=== PATIENT | male | born 1955 | race Caucasian/White ===

== ENCOUNTER 2017-12-09 11:53 | Inpatient (IN) ==
--- NOTE | 2017-12-09 12:10 | Emergency Department Note ---
Disposition Clinical Impression: Non-ST elevation [place] (NSTEMI) Disposition: Admitted As Inpatient Condition: Good Referrals: Alison Scott [Primary Care Provider] - Forms: ED Satisfaction Letter Time of Disposition: 14:14 General Adult HPI - General Chief complaint: ED Shortness of Breath/Dyspnea Stated complaint: JAMEL,CP x1wk Time Seen by Provider: 12/09/17 11:59 Source: patient Mode of arrival: ambulatory Limitations: no limitations - History of Present Illness HPI Narrative: This is a 62-year-old male who comes to emergency department stating that for the last week he has had dyspnea on exertion like he had before his angioplasty on August [id number]. He states that the shortness of breath is accompanied by pain that radiates into the back of his neck. He reports some chest discomfort but no actual chest pain. He has never smoked and has no diagnosis of COPD. - Related Data Home Medications Medication Instructions Recorded Confirmed Aspirin [Lo-Dose Aspirin EC] 81 mg PO DAILY 08/01/17 08/01/17 Duloxetine HCl [Cymbalta] 60 mg PO DAILY 08/01/17 08/01/17 Gabapentin [Neurontin] 600 mg PO BID 08/01/17 08/01/17 Lisinopril [Zestril] 20 mg PO DAILY 08/01/17 08/01/17 [place]-3/Dha/Epa/Fish Oil [Fish Oil 1 tab PO BID 08/01/17 08/01/17 1,000 mg Softgel] Sitagliptin Phos/Metformin HCl 1 each PO DAILY 08/01/17 08/01/17 [Janumet Xr 100-1,000 mg Tablet] Tamsulosin [Flomax] 0.4 mg PO DAILY 08/01/17 08/01/17 hydrOXYzine HCl [Hydroxyzine HCl] 25 mg PO BID 08/01/17 08/01/17 Previous Rx's Medication Instructions Recorded Atorvastatin [Lipitor] 80 mg PO HS #30 tablet 08/02/17 Metoprolol [Lopressor] 12.5 mg PO BID #60 tablet 08/02/17 Nitroglycerin 0.4 mg SL Q5MIN PRN #30 tab.subl 08/02/17 Ticagrelor [Brilinta] 90 mg PO BID #60 tablet 08/02/17 Allergies Allergy/AdvReac Type Severity Reaction Status Date / Time steroids Allergy Rash Uncoded 08/01/17 08:29 All systems ED: reviewed and negative except as stated. Cardiovascular: Reports: chest pain Respiratory: Reports: dyspnea Musculoskeletal: Reports: other (Neck pain) Past Medical History - Past Medical History Medical history: Reports: diabetes, hypertension Psychiatric history: Reports: anxiety - Social History Smoking Status: Never smoker Smokeless Tobacco Status: Yes Alcohol use: Reports: none Drug use: Reports: none Physical Exam - General Limitations: no limitations General appearance: alert, in no apparent distress - Head Head exam: atraumatic, normocephalic, normal inspection - Eye Eye exam: Present: normal appearance, PERRL, EOMI - Chest Chest inspection: Present: normal inspection, symmetric chest wall rise - Respiratory Respiratory exam: Present: normal lung sounds bilaterally. Absent: respiratory distress, wheezes, accessory muscle use, prolonged expiratory phase - Cardiovascular Cardiovascular exam: Present: regular rate, normal rhythm, normal heart sounds - Abdominal Exam Abdominal exam: Present: soft, Non-Tender. Absent: tenderness, distention, guarding, rebound, rigidity - Extremities Exam Extremities exam: Present: normal inspection, full ROM. Absent: tenderness, pedal edema - Back Exam Back exam: Absent: CVA tenderness (R), CVA tenderness (L) - Neurological Exam Neurological exam: Present: alert, oriented X3 - Psychiatric Psychiatric exam: Present: normal affect, normal mood - Skin Skin exam: Present: warm, dry, intact, normal color Course Course Narrative: This is a 62-year-old male with shortness of breath with exertion concerning for acute coronary syndrome Vital Signs Temperature 98.8 F 12/09/17 11:56 Pulse Rate 74 12/09/17 11:56 Respiratory Rate 18 12/09/17 11:56 Blood Pressure 147/76 12/09/17 11:56 O2 Sat by Pulse Oximetry 97 12/09/17 11:56 Temperature 98.8 F 12/09/17 12:05 Pulse Rate 74 12/09/17 12:05 Respiratory Rate 18 12/09/17 12:05 Blood Pressure 147/76 12/09/17 12:05 O2 Sat by Pulse Oximetry 97 12/09/17 12:05 Oxygen Delivery Oxygen Delivery Room Air Medical Decision Making - Lab Data Lab results narrative: CBC was unremarkable BMP was unremarkable Troponin was elevated at 0.21 Result diagrams: 12/09/17 13:18 12/09/17 12:17 Lab Results 12/09/17 12/09/17 12/09/17 Range/Units 12:17 12:17 13:18 WBC 9.4 9.6 (4.3-11.1) K/mcL RBC 4.72 4.79 (4.19-5.50) M/mcL Hgb 14.6 14.7 (12.9-16.9) g/dL Hct 43.2 43.7 (37.5-50.1) % MCV 91.5 91.2 (83.0-100.0) fL MCH 30.9 30.7 (28.0-33.3) pg MCHC 33.8 33.6 (31.6-35.5) g/dL RDW 13.2 13.3 (11.5-14.5) % Plt Count 261 269 (140-400) K/mcL MPV 9.8 9.8 (9.4-12.4) fL Immature Gran % 0.3 (0-4) % Seg Neutrophils % 66.4 % Lymphocytes % 19.5 % Monocytes % 10.4 % Eosinophils % 2.4 % Basophils % 1.0 % Neutrophils # 6.3 (1.6-8.9) K/mcL Lymphocytes # 1.8 (0.6-4.6) K/mcL Monocytes # 1.0 (0.0-1.3) K/mcL Eosinophils # 0.2 (0.0-0.6) K/mcL Basophils # 0.1 (0.0-0.2) K/mcL PT (9.4-12.1) Seconds INR Heparin Anti-Xa, Unfract (0.30-0.70) IU/mL Sodium 138 (136-145) mEq/L Potassium 4.0 (3.5-5.1) mEq/L Chloride 104 (98-107) mEq/L Carbon Dioxide 28 (23-29) mEq/L BUN 20 (8-23) mg/dL Creatinine 0.81 (0.70-1.30) mg/dL Est GFR ( Amer) > 60 (> 60) Est GFR (Non-Af Amer) > 60 (> 60) BUN/Creatinine Ratio 25 (6-26) Glucose 140 H (70-105) mg/dL Calculated Osmolality 291 (280-300) Calcium 9.5 (8.6-10.3) mg/dL Troponin I 0.21 H* (< 0.04) ng/mL 12/09/17 Range/Units 13:18 WBC (4.3-11.1) K/mcL RBC (4.19-5.50) M/mcL Hgb (12.9-16.9) g/dL Hct (37.5-50.1) % MCV (83.0-100.0) fL MCH (28.0-33.3) pg MCHC (31.6-35.5) g/dL RDW (11.5-14.5) % Plt Count (140-400) K/mcL MPV (9.4-12.4) fL Immature Gran % (0-4) % Seg Neutrophils % % Lymphocytes % % Monocytes % % Eosinophils % % Basophils % % Neutrophils # (1.6-8.9) K/mcL Lymphocytes # (0.6-4.6) K/mcL Monocytes # (0.0-1.3) K/mcL Eosinophils # (0.0-0.6) K/mcL Basophils # (0.0-0.2) K/mcL PT 11.3 (9.4-12.1) Seconds INR 1.0 Heparin Anti-Xa, Unfract 0.05 L (0.30-0.70) IU/mL Sodium (136-145) mEq/L Potassium (3.5-5.1) mEq/L Chloride (98-107) mEq/L Carbon Dioxide (23-29) mEq/L BUN (8-23) mg/dL Creatinine (0.70-1.30) mg/dL Est GFR ( Amer) (> 60) Est GFR (Non-Af Amer) (> 60) BUN/Creatinine Ratio (6-26) Glucose (70-105) mg/dL Calculated Osmolality (280-300) Calcium (8.6-10.3) mg/dL Troponin I (< 0.04) ng/mL - EKG Data EKG #1 EKG attestation: Yes I reviewed and interpreted this EKG. EKG results narrative: ECG shows a sinus rhythm, 75 bpm, normal intervals, normal axis,, ST depressions in leads 2 and V4 through V6, T-wave inversions in 1, aVL, and V4 through V6 EKG #2 EKG attestation: Yes I reviewed and interpreted this EKG. EKG results narrative: In DCG with posterior leads showed a sinus rhythm, 69 bpm, no ST elevations in V7, V8, or V9, no ST elevations, Critical Care Time Critical Care Time: Yes Total Critical Care Time: 20 Attestation: 20 minutes of critical care time was invested independent of any separately billable procedures
[2017-12-09 12:30] LABS: Basophils # 0.1 K/mcL (0.0-0.2); Eosinophils # 0.2 K/mcL (0.0-0.6); Eosinophils % 2.4 %; Hematocrit 43.2 % (37.5-50.1); Hemoglobin 14.6 g/dL (12.9-16.9); Immature Granulocytes % 0.3 % (0-4); Lymphocytes # 1.8 K/mcL (0.6-4.6); Lymphocytes % 19.5 %; Mean Corpuscular HGB Conc 33.8 g/dL (31.6-35.5); Mean Corpuscular Hemoglobin 30.9 pg (28.0-33.3); Mean Corpuscular Volume 91.5 fL (83.0-100.0); Mean Platelet Volume 9.8 fL (9.4-12.4); Monocytes % 10.4 %; Neutrophils # 6.3 K/mcL (1.6-8.9); Platelet Count 261 K/mcL (140-400); Red Blood Count 4.72 M/mcL (4.19-5.50); Red Cell Distribution Width 13.2 % (11.5-14.5); Segmented Neutrophils % 66.4 %
[2017-12-09 12:52] LABS: BUN/Creatinine Ratio 25 (6-26); Blood Urea Nitrogen 20 mg/dL (8-23); Calcium 9.5 mg/dL (8.6-10.3); Carbon Dioxide 28 mEq/L (23-29); Chloride 104 mEq/L (98-107); Glucose 140 mg/dL (70-105); Osmolality,Calculated 291 (280-300); Sodium 138 mEq/L (136-145); eGFR For Non-African Americans > 60 (> 60)
[2017-12-09 13:01] LABS: Troponin I 0.21 ng/mL (< 0.04)
[2017-12-09] MEDS ORDERED: *HR* Heparin 5,000 UNIT/ML VIAL IVP ONE (13:10)
[2017-12-09] MEDS ORDERED: *HR* Heparin 5,000 UNIT/ML VIAL IVP PRN ×2 (13:10)
[2017-12-09] MEDS ORDERED: Heparin 25,000 UNIT/500 ML D5W 25,000 UNIT/500 ML BAG IVC SCH (13:15)
--- NOTE | 2017-12-09 13:30 | Cardiology Consult Note ---
Date of Encounter: 12/09/17 Time of Encounter: 13:28 Assessment and Plan (1) NSTEMI (non-ST elevated myocardial infarction) Current Visit: Yes Status: Acute HECTOR 3-4, known RCA stent 07/2017, severe OM2 and R-PDA. taking his meds at home. Had ASA 324 in ED P: heparin drip [facility], NPO needs floor bed c/w other home meds TTE (2) Aortic stenosis, moderate Current Visit: Yes Status: Acute moderate, repeat TTE given dyspnea worsening (3) CAD (coronary artery disease) Current Visit: No Status: Acute see NSTEMI section Qualifiers: Coronary Disease-Associated Artery/Lesion type: [place] artery [place] vs. transplanted heart: [place] heart Associated angina: with unstable angina Qualified Code(s): I25.110 - Atherosclerotic heart disease of [place] coronary artery with unstable angina pectoris Discussion w patient/family: The assessment and plan as outlined above was discussed with the patient and/or family members who expressed understanding and agreement. All questions were answered. Thank you for involving us in the care of your patient. Please call with any questions. History of Present Illness Consult date: 12/09/17 Requesting physician: Kameron Gilliland Consult reason: NSTEMI Chief complaint: chest discomfort, dyspnea History of present illness: Mr. Pitt is a 62 year old male CAD RCA DESx1 07/2017 for UA, plan staged OM2 and R-PDA. moderate . P/w accelerating chest pressure on exertion with radiation to neck, relieved by rest, dyspnea with declining tolerance. No syncope, dizziness, palpitation, N/V. HD stable, no O2 requirement. ECG STD V4-6, TWI high and low lateral, ant. Trop 0.2. Cr nl, Hb nl, no bleeding , no surgery plan. Discussed w pt and family, who agree with [facility] 08/02/17 Dr. Yuen as outpatient with unstable angina and dyspnea on exertion. He presented for catheterization 08/01/2017 and catheterization showed severe 2 vessel CAD. Patient underwent PTCA/drug-eluting stent to proximal RCA 80% lesion. Has remaining proximal LAD 65%, OM to 80%, mid RCA 50% lesion with noted bridging, and right PDA 90% lesion. On aspirin, Brilinta-- assistance card provided and education provided regarding dual antiplatelet therapy for at least 1 year. On ADI inhibitor. We will start high-dose statin therapy, beta nel therapy, and nitroglycerin pills provided and distraction was utilized and when to call 911. Post procedure education provided. All questions answered. Catheterization report noted to "consider PCI of OM and right PDA if symptomatic". Patient instructed to resume Janumet tomorrow. 07/31/17 TTE mpressions: LVEF 60-65%. Normal LV chamber size and function. Mild concentric left ventricular hypertrophy. Mild left ventricular diastolic dysfunction. Normal right ventricular structure and function. Moderately calcified aortic valve leaflets. The number of leaflets cannot be determined. Moderate aortic stenosis. Mean gradient 33 mmHg. Peak velocity 3.92 m/s. Mild aortic regurgitation. No evidence of pulmonary hypertension. 08/01/17 [facility] Impressions: There is severe two vessel coronary artery disease. Patient had successful PTCA/Drug-Eluting Stent placement in the proximal RCA. FFR Measurement: 0.88 of the proximal LAD Diffuse severe disease of the RPDA Severe disease of the OM2 (small diameter vessel) Mid RCA moderate disease with bridging likely Recommendations: Optimal medical therapy of patient's disease. Aggressive risk factor modification. Medical Management Consider PCI of the OM and RPDA if symtpomatic Past Med Surg Social Fam HX - Past Medical History Medical history: diabetes, hypertension Additional medical history: POST CONCUSSION SYNDROME. MURMUR Psychiatric history: anxiety - Past Surgical History Additional surgical history: CARPAL TUNNEL. 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 STENT - Social History Smoking Status: Never smoker Smokeless Tobacco Status: Yes Alcohol use: none Drug use: none Medications and Allergies Aspirin [Lo-Dose Aspirin EC] 81 mg PO DAILY 08/01/17 [History] Duloxetine HCl [Cymbalta] 60 mg PO DAILY 08/01/17 [History] Gabapentin [Neurontin] 600 mg PO BID 08/01/17 [History] Lisinopril [Zestril] 20 mg PO DAILY 08/01/17 [History] [employer]-3/Dha/Epa/Fish Oil [Fish Oil 1,000 mg Softgel] 1 tab PO BID 08/01/17 [ History] Sitagliptin Phos/Metformin HCl [Janumet Xr 100-1,000 mg Tablet] 1 each PO DAILY 08/01/17 [History] Tamsulosin [Flomax] 0.4 mg PO DAILY 08/01/17 [History] hydrOXYzine HCl [Hydroxyzine HCl] 25 mg PO BID 08/01/17 [History] Atorvastatin [Lipitor] 80 mg PO HS #30 tablet 08/02/17 [Rx] Metoprolol [Lopressor] 12.5 mg PO BID #60 tablet 08/02/17 [Rx] Nitroglycerin 0.4 mg SL Q5MIN PRN #30 tab.subl 08/02/17 [Rx] Ticagrelor [Brilinta] 90 mg PO BID #60 tablet 08/02/17 [Rx] 3 Allergy/AdvReac Type Severity Reaction Status Date / Time steroids Allergy Rash Uncoded 08/01/17 08:29 All Systems Review: The remainder of the systems were reviewed and are negative - Cardiovascular Cardiovascular: as per HPI - Respiratory Respiratory: dyspnea - Hematological/Lymphatic Hematologic/Lymphatic: no easy bleeding Physical Examination Vital Signs, Last 4 Hours Temp Pulse Resp BP Pulse Ox 12/09/17 12:05 98.8 F 74 18 147/76 97 12/09/17 11:56 98.8 F 74 18 147/76 97 Other: General: NAD, AAO, cogent HEENT: anicteric Neck: no JVD, Chest: CTA B/L, no W/R/C Heart: RRR, S1/S2 preserved A2, no S3/S4, 3/6SM max R-2nd ICS with radiation to both carotids, no G/R Abdominal: BS +, soft, ND, NT Peripheral Pulses: radial pulse 2+ B/L, DP 2+ B/L Skin/Extremities: no cyanosis, no LE edema Neurological: grossly non-focal. Results 12/09/17 13:18 12/09/17 12:17 Lab Results 12/09/17 12/09/17 12:17 12:17 WBC 9.4 Hgb 14.6 Hct 43.2 Plt Count 261 Sodium 138 Potassium 4.0 Chloride 104 Carbon Dioxide 28 BUN 20 Creatinine 0.81 Glucose 140 H Calcium 9.5 Troponin I 0.21 H* - Imaging and Cardiology Echo: report reviewed Cardiac cath: report reviewed Holter: other (tele reviewed) - EKG Interpretation EKG results cardiology: personally reviewed Consult Discharge Plan - Plan
[2017-12-09 13:55] LABS: Hematocrit 43.7 % (37.5-50.1); Hemoglobin 14.7 g/dL (12.9-16.9); Mean Corpuscular HGB Conc 33.6 g/dL (31.6-35.5); Mean Corpuscular Hemoglobin 30.7 pg (28.0-33.3); Mean Corpuscular Volume 91.2 fL (83.0-100.0); Mean Platelet Volume 9.8 fL (9.4-12.4); Platelet Count 269 K/mcL (140-400); Red Blood Count 4.79 M/mcL (4.19-5.50); Red Cell Distribution Width 13.3 % (11.5-14.5)
[2017-12-09 13:59] LABS: Heparin anti-factor XA UFH 0.05 IU/mL (0.30-0.70); Prothrombin Time 11.3 Seconds (9.4-12.1)
[2017-12-09] MEDS ORDERED: Dextrose Gel 15 GM/37.5 ML TUBE PO PRN ×2 (14:58)
[2017-12-09] MEDS ORDERED: *HR* Dextrose 50 % in Water (Syg) 50 ML SYRINGE IVP PRN (14:58)
[2017-12-09] MEDS ORDERED: D5% in Water 1,000 ML IVC PRN (14:58)
[2017-12-09] MEDS ORDERED: Acetaminophen 325 MG TABLET PO PRN (14:59)
[2017-12-09] MEDS ORDERED: Naloxone 0.4 MG/ML INJ IVP PRN (14:59)
[2017-12-09] MEDS ORDERED: *HR* HYDROcodone/Acet 5/325 mg TABLET PO PRN (14:59)
[2017-12-09] MEDS ORDERED: Nitroglycerin 0.4 MG TAB.SUBL SL PRN (14:59)
--- NOTE | 2017-12-09 15:30 | Internal Med History&Physical ---
<AbnermelaveronicaKameron jolley - Last Filed: 12/09/17 16:05> Date of Encounter: 12/09/17 Time of Encounter: 14:30 Internal Medicine - H&P: HPI Chief complaint: CP Admitted From: Emergency Dept Plans for Post Hospital Care: Home History of present illness: Mr. Pitt is a 62 year old male w/PMH of CAD, diabetes controlled with oral antihyperglycemic medications, HTN, HLD, urinary retention, and anxiety presents from the ED with chief complaint of shortness of breath, nausea, and chest discomfort that he states radiates to the central back of his neck. States that the discomfort is not sharp/stabbing pain or pressure but a feeling similar prior to his angioplasty in July 2017. No hx/dx of CHF or COPD. Does report that he fell approx. 1 week ago while on vacation and injured left ribs and has pain w/deep inspiration. Denies smoking hx but uses chewing tobacco. No alleviating or aggravating factors. Patient denies recent illness, fever, chills, vomiting, headache, changes in vision, unusual bleeding, cough, chest congestion, diaphoresis, abdominal pain, diarrhea, constipation, dizziness, lightheadedness, numbness, tingling, pre-syncope, or syncope. Past Med Surg Social Fam HX - Past Medical History Source: patient, old records reviewed, obtained from family Medical history: diabetes, hyperlipidemia, hypertension Additional medical history: POST CONCUSSION SYNDROME. MURMUR Psychiatric history: anxiety - Past Surgical History Surgical History: angioplasty/stent (x1 in July 2017 on Plavix) Additional surgical history: CARPAL TUNNEL. 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 - Social History Smoking Status: Never smoker Smokeless Tobacco Status: Yes Alcohol use: none Drug use: none Current living situation: Home, With Family Activity Level: Independent ambulation Recent Out of Country Travel Within the Last 8 Weeks: No Exposure or Possible Exposure to Illness During Travel: No - Family History Father Race: Family Member Ethnicity: Non- Living Status: Age at : 71 Cause of : MS Hx Family Cardiac Disorders: Yes (MS) Hx Family Endocrine Disorder: Yes (DM) Mother Race: Family Member Ethnicity: Non- Living Status: Age at : 69 Cause of : MS Hx Family Cardiac Disorders: Yes (MS) Hx Family Endocrine Disorder: Yes (DM) Brother Race: Family Member Ethnicity: Non- Living Status: Still Living Hx Family Cardiac Disorders: Yes (Stents) Hx Family Respiratory Disorders: Yes (COPD/Emphysema) Sister Race: Family Member Ethnicity: Non- Living Status: Still Living Hx Family Endocrine Disorder: Yes (DM) Internal Medicine - H&P: Meds Aspirin [Lo-Dose Aspirin EC] 81 mg PO DAILY 08/01/17 [History] Duloxetine HCl [Cymbalta] 60 mg PO DAILY 08/01/17 [History] Gabapentin [Neurontin] 600 mg PO BID 08/01/17 [History] Lisinopril [Zestril] 20 mg PO BID 08/01/17 [History] [place]-3/Dha/Epa/Fish Oil [Fish Oil 1,000 mg Softgel] 1 tab PO BID 08/01/17 [ History] Sitagliptin Phos/Metformin HCl [Janumet Xr 100-1,000 mg Tablet] 1 each PO DAILY 08/01/17 [History] Tamsulosin [Flomax] 0.4 mg PO DAILY 08/01/17 [History] hydrOXYzine HCl [Hydroxyzine HCl] 25 mg PO BID 08/01/17 [History] Atorvastatin [Lipitor] 80 mg PO HS #30 tablet 08/02/17 [Rx] Metoprolol [Lopressor] 12.5 mg PO BID #60 tablet 08/02/17 [Rx] Nitroglycerin 0.4 mg SL Q5MIN PRN #30 tab.subl 08/02/17 [Rx] Clopidogrel [Plavix] 75 mg PO DAILY 12/09/17 [History] Glimepiride [Amaryl] 2 mg PO DAILY 12/09/17 [History] Ibuprofen [Ibu] 800 mg PO TID PRN 12/09/17 [History] Metformin HCl 1,000 mg PO QPM 12/09/17 [History] 3 Allergy/AdvReac Type Severity Reaction Status Date / Time steroids Allergy Rash Uncoded 08/01/17 08:29 All Systems PM: A 10-system review of systems was performed and is negative for pertinent findings except as documented above in the HPI. - Constitutional Constitutional: as per HPI, no chills, no fever(s), no night sweats - EENT Eyes: no change in vision, no discharge, no pain, no photophobia Ears: no ear discharge, no ear pain, no tinnitus Nose, mouth and throat: no dysphagia, no nasal discharge, no neck pain, no sore throat - Breasts Breasts: as per HPI - Cardiovascular Cardiovascular ROS IM: as per HPI, chest pain, dyspnea, dyspnea on exertion, no diaphoresis, no lightheadedness, no palpitations, no syncope - Respiratory Respiratory: as per HPI, dyspnea, dyspnea on exertion, pain on inspiration ( Left ribs from fall one week ago), no cough, no wheezing, no excessive phlegm production - Gastrointestinal Gastrointestinal: as per HPI, nausea, no abdominal pain, no diarrhea, no hematemesis, no hematochezia, no melena, no vomiting - Genitourinary Genitourinary ROS male: as per HPI, difficulty urinating - Musculoskeletal Musculoskeletal ROS IM: as per HPI, neck pain, no numbness, no tingling - Integumentary Integumentary IM: as per HPI, no rash, no unusual bruising - Neurological Neurological ROS: no confusion, no convulsions, no focal weakness, no numbness, no tingling, no tremor(s) - Psychiatric Psychiatric: as per HPI, anxiety - Endocrine Endocrine IM: as per HPI - Hematologic/Lymphatic Hematologic/Lymphatic: no easy bruising - Allergic/Immunologic Allergic/Immunologic: as per HPI - Constitutional Vitals: Temp Pulse Resp BP Pulse Ox 98.8 F 82 16 140/75 95 12/09/17 12:05 12/09/17 14:59 12/09/17 14:59 12/09/17 14:59 12/09/17 14:59 General appearance: Present: cooperative, A&O X 3, pleasant, no acute distress, obese, answers questions appropriately Exam: Pt. examined at bedside in ED. Pt. resting in bed w/report of chest discomfort that he cannot describe. States similar to angioplasty in July 2017. States pain is not sharp/stabbing or pressure but an odd feeling. Also reports nausea and SOB. Denies hx of COPD or CHF. Family at bedside and all questions answered during assessment and exam. Pt. denies any other sx currently. - Head Head exam: Present: atraumatic, normocephalic - Eye Eye exam: Present: PERRL, conjuntiva pink, sclera anicteric Pupils: Present: PERRL - ENT ENT exam: Present: normal exam - Neck Neck exam general surgery: Present: normal inspection, supple, trachea midline. Absent: lymphadenopathy - Respiratory Respiratory exam: Present: CTAB. Absent: accessory muscle use, rales, rhonchi, wheezes - Cardiovascular Cardiovascular exam: Present: RRR, +S1, +S2. Absent: diastolic murmur, gallop, rubs, systolic murmur - GI/Abdominal GI/Abdominal exam: Present: normal bowel sounds, soft, no peritoneal signs. Absent: distended, tenderness - Rectal Rectal exam: Present: deferred - Additional comments: exam deferred. - Extremities Exam Extremities exam: Present: warm, radial pulses palpable and symmetrical. Absent : calf tenderness, cyanotic, pedal edema - Back Exam Back exam: Present: normal inspection - Neurological Exam Neurological exam: Present: alert, CN II-XII intact, oriented X3, no focal deficits. Absent: pronater drift, facial droop, speech deficit - Psychiatric Psychiatric exam: Present: normal affect, normal mood - Skin Skin exam: Present: dry, intact Internal Med - H&P Results - Labs CBC & Chem 7: 12/09/17 13:18 12/09/17 12:17 - EKG Data EKG shows normal: sinus rhythm - EKG Data Prior EKG available for review: yes Interpretation IM: suggestive of ischemia EKG comments: 12/09/17 15:38 EKG dated 04/21/2001 shows sinus rhythm within normal limits. EKG dated 12/09/2017 12:09 shows sinus rhythm w/probable left atrial enlargement and abnormal repolarization suggests anterolateral ischemia. EKG dated 12/09/2017 13:27 shows sinus rhythm and abnormal repolarization suggests anterolateral ischemia. - Diagnostic Studies Chest x-ray Additional comments: Impressions Chest X-Ray 12/09/17 12:07 IMPRESSION: 1. Findings suggest congestive heart failure 2. Possible left lower lobe airspace disease. Follow-up chest radiograph is suggested D/ / Jerry Lira MD / Jerry Lira MD Interpreting Provider: Jerry Lira MD - Assessment and plan (1) NSTEMI (non-ST elevated myocardial infarction) Current Visit: Yes Status: Acute Assessment and plan: Acute CP that pt. reports w/shortness of breath, nausea, and chest discomfort that he states radiates to the central back of his neck. States that the discomfort is not sharp/stabbing pain or pressure but a feeling similar prior to his angioplasty in July 2017. No hx/dx of CHF or COPD.Hx of chronic CAD w/ previous angioplasty/stent x1 in July 2017. Pt. compliant w/home medications. 325 mg ASA in ED. Continue 81 mg ASA daily tomorrow. 80 mg Lipitor NOW and HS starting tomorrow. Heparin drip. Echocardiogram. Continuous cardiac telemetry. NPO for LHC. EKG today shows sinus rhythm with abnormal repolarization suggesting anterolateral ischemia. Cardiology consult ordered and discussed w/ Dr. Motta w/plan for LHC today. I appreciate the consult and recommendations as always. Pt. discussed w/Dr. Mcfarland who agrees w/plan of care. Pt. is high risk for cardiac event and further morbidity d/t current NSTEMI as suggested by EKG, elevated initial troponin of 0.21, hx of stent placement in July 2017 w/ additional blockages noted, need for heparin drip requiring close monitoring and titration, hx; and risk factors of HTN, HLD, DM, current tobacco abuse, and strong familial hx of CAD. Inpatient. (2) Aortic stenosis, moderate Current Visit: Yes Status: Acute Assessment and plan: Acute aortic stenosis. Cardiology consult ordered and discussed w/Dr. Motta w/ recommendation for repeat Echocardiogram d/t current changes. I appreciate the consult and recommendations as always. (3) SOB (shortness of breath) Current Visit: Yes Status: Acute Assessment and plan: Acute SOB accompanying CP sx. No hx/dx of COPD or CHF. Never smoker but uses chewing tobacco. Supplemental O2 w/titration and SpO2 monitoring. (4) CAD (coronary artery disease) Current Visit: Yes Status: Chronic Assessment and plan: Hx of chronic CAD w/previous angioplasty/stent x1 in July 2017. Pt. compliant w/ home medications. 325 mg ASA in ED. 80 mg Lipitor NOW. Heparin drip. Echocardiogram. Continuous cardiac telemetry. NPO for LHC. Qualifiers: Coronary Disease-Associated Artery/Lesion type: [place] artery [place] vs. transplanted heart: [place] heart Associated angina: with unstable angina Qualified Code(s): I25.110 - Atherosclerotic heart disease of [place] coronary artery with unstable angina pectoris (5) Diabetes Current Visit: Yes Status: Chronic Assessment and plan: Hx of chronic diabetes controlled with oral antihyperglycemic medications. Hold metformin and continue patient's glimepiride and add low-dose correction sliding scale insulin with hypoglycemic protocol. BG checks every 6 due to nothing by mouth status and change to before meals at bedtime once patient is allowed to eat. A1c in a.m. labs. Qualifiers: Diabetes mellitus type: type 2 Diabetes mellitus termite treater insulin use: without assisted use Diabetes mellitus complication status: with unspecified complications Qualified Code(s): E11.8 - Type 2 diabetes mellitus with unspecified complications (6) HTN (hypertension) Current Visit: Yes Status: Chronic Assessment and plan: Hx of chronic HTN. Monitor pt. and VS. Continue pts. Lisinopril and Lopressor. Add hydralazine 10 mg Q6HR PRN IVP w/parameters. Qualifiers: Hypertension type: essential hypertension Qualified Code(s): I10 - Essential (primary) hypertension (7) HLD (hyperlipidemia) Current Visit: Yes Status: Chronic Assessment and plan: Hx of chronic HLD. Lipid panel in a.m. labs. 80 mg Lipitor NOW. Continue pts. home dose of 80 mg HS tomorrow. Qualifiers: Hyperlipidemia type: pure hypercholesterolemia Qualified Code(s): E78.00 - Pure hypercholesterolemia, unspecified; E78.0 - Pure hypercholesterolemia (8) Chewing tobacco use Current Visit: Yes Status: Chronic Assessment and plan: Hx of chronic chewing tobacco use. Denies ever smoking cigarettes or marijuana. 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 Pt. counseled on cessation of tobacco use on assessment and exam. (9) DVT prophylaxis Current Visit: Yes Status: Acute Assessment and plan: Heparin gtt started d/t EKG suggestive of NSEMI and initial troponin of 0.21. Monitor pt. for signs of bleeding. (10) Rib pain on left side Current Visit: Yes Status: Acute Assessment and plan: Acute left rib pain from fall sustained on vacation one week ago. Pt. states he has pain w/deep inspiration. Did not seek medical attn. XR of left ribs ordered. Stair-step pain medications for pain mgmt. - Time Spent With Patient Total time spent is greater than 50% in coordination of care (as documented) at patient's floor/unit and/or counseling patient: Greater than 35 minutes <Long Mcfarland - Last Filed: 12/09/17 17:44> Date of Encounter: 12/09/17 Internal Medicine - H&P: HPI History of present illness: Mr. Pitt is a 62 year old male All Systems PM: A 10-system review of systems was performed and is negative for pertinent findings except as documented above in the HPI. - Constitutional Vitals: Temp Pulse Resp BP Pulse Ox 98.8 F 97 18 139/62 95 12/09/17 12:05 12/09/17 15:49 12/09/17 15:49 12/09/17 15:49 12/09/17 14:59 Internal Med - H&P Results - Labs CBC & Chem 7: 12/09/17 13:18 12/09/17 12:17 - Assessment and plan (1) CAD (coronary artery disease) Current Visit: Yes Status: Chronic Qualifiers: Coronary Disease-Associated Artery/Lesion type: [place] artery [place] vs. transplanted heart: [place] heart Associated angina: with unstable angina Qualified Code(s): I25.110 - Atherosclerotic heart disease of [place] coronary artery with unstable angina pectoris (2) NSTEMI (non-ST elevated myocardial infarction) Current Visit: Yes Status: Acute (3) Aortic stenosis, moderate Current Visit: Yes Status: Acute (4) Diabetes Current Visit: Yes Status: Chronic Qualifiers: Diabetes mellitus type: type 2 Diabetes mellitus assisted insulin use: without termite treater use Diabetes mellitus complication status: with unspecified complications Qualified Code(s): E11.8 - Type 2 diabetes mellitus with unspecified complications (5) HTN (hypertension) Current Visit: Yes Status: Chronic Qualifiers: Hypertension type: essential hypertension Qualified Code(s): I10 - Essential (primary) hypertension (6) HLD (hyperlipidemia) Current Visit: Yes Status: Chronic Qualifiers: Hyperlipidemia type: pure hypercholesterolemia Qualified Code(s): E78.00 - Pure hypercholesterolemia, unspecified; E78.0 - Pure hypercholesterolemia (7) SOB (shortness of breath) Current Visit: Yes Status: Acute (8) DVT prophylaxis Current Visit: Yes Status: Acute (9) Chewing tobacco use Current Visit: Yes Status: Chronic (10) Rib pain on left side Current Visit: Yes Status: Acute - Time Spent With Patient Total time spent is greater than 50% in coordination of care (as documented) at patient's floor/unit and/or counseling patient: - Attending Attestation Seen and assessed. Agree with plan per CREATIVE SERVICES MANAGER for NSTEMI. continue management as detailed in assessment and plan
[2017-12-09] MEDS ORDERED: Nitroglycerin 1,000 MCG/10 ML VIAL IV ONE ×2 (15:33→16:11)
[2017-12-09] MEDS ORDERED: Heparin 1,000 UNITS/500 mL 500 ML ONE ×2 (15:33→16:11)
[2017-12-09] MEDS ORDERED: 0.9 % Sodium Chloride 1,000 ML ONE ×2 (15:33→16:10)
[2017-12-09] MEDS ORDERED: *HR* Heparin 10,000 UNIT/10 ML VIAL ONE ×2 (15:33→16:11)
[2017-12-09] MEDS ORDERED: ISOVUE-370 200 ML INFUS..BTL IV ONE ×2 (15:33→16:11)
--- NOTE | 2017-12-09 16:11 | Pre-Sedation Evaluation ---
Pre-sedation evaluation - Pre-sedation checklist Date of procedure: 12/09/17 Procedure: [facility] Recent Vitals: Last Vital Signs Temp 98.8 F 12/09/17 12:05 Pulse 97 12/09/17 15:49 Resp 18 12/09/17 15:49 BP 139/62 12/09/17 15:49 Pulse Ox 95 12/09/17 14:59 H&P (including ROS) documented in medical record: Yes Previous reaction to sedatives/anesthetics: No Dietary Status: NPO after Midnight Airway Assessment: Patient can open mouth completely, TMJ function normal, Micrognathia (under-bite, receding chin) absent, Neck with adequate range of motion Dentition: No loose teeth or bridges Possible difficult airway: No ASA Classification *see protocol: CLASS II-Mild systemic disease Plan of Care: Pt appropriate candidate for procedure/moderate/conscious sedation , Risks/benefits of procedure/sedation discussed w/ patient/family Cardiac Registry (Cardio Only) - Functional Capacity Functional Capacity: < 4 METS - Clincal Frailty Scale Clinical Frailty Scale: Vulnerable
[2017-12-09] MEDS ORDERED: *HR* Midazolam HCl 2 MG/2 ML VIAL ONE ×2 (16:18→16:56)
[2017-12-09] MEDS ORDERED: *HR* FentaNYL (PF) 100 MCG/2 ML VIAL ONE ×2 (16:18→16:56)
[2017-12-09 16:21] LABS: Thyroid Stimulating Hormone 2.809 mcIU/mL (0.340-5.600)
[2017-12-09] MEDS ORDERED: *HR* Bivalirudin 250 MG VIAL IVC ONE (16:52)
--- NOTE | 2017-12-09 17:43 | Invasive Diagnostic Lab Proc ---
Name: Nicholas Pitt Date of Study: 12/09/2017 Date: 1955 Ht: 70.9in Medical Record#: [id number] Age: 62 Wt: 207.90lb Gender: Male BSA: 2.14 Order #: [id number] BMI: 29.1 Physicians Procedure Physician: Thuy Ray MD, [facility] Referring MD: Referring MD: Staff Name Position Time In Shawn Dockery RT (R) Monitor 04:09 PM Ana Archuleta RT (R) Scrub 04:09 PM Alethea Swift RN Lasting Room Machine Operator 04:09 PM Indications Indication Non-Stemi Procedures Performed Procedure L HRT ARTERY/VENTRICLE ANGIO PRQ CARD IRIS STENT W/ANGIO 1 VSL Pre-Procedure Checklist Informed consent is complete signed and on chart. H&P is on chart. ID band is on and ID verified with patient. Patient NPO for procedure The procedure was described for the patient and questions were answered. ECG is on chart. Rhythm: NSR Plan of Care Patient will tolerate the procedure without complications. Adequate level of comfort will be maintained. Hemodynamics will remain stable Patient will recover from procedure without complications. Respiratory function will be maintained. Cardiac rhythm will remain stable. Patient temperature will be maintained. Patient and/or family have verbalized understanding of the procedure. Patient Education Chief Complaint/Reason for Test: Cardiac Cath Developmental Category: Adult (18-64 years) Developmentally Appropriate for Age: Yes Learning Barriers: None Education Needs: Procedure Education Method: Verbal Information Taught: Cardiac Cath Educational Evaluation: Able to repeat information Intravenous Access Time IV Size Location DC'd Fluid/Drip Rate Units RN 04:09 PM 18g 1 04/03" Patent On Arrival Rt Antecubital 0.9NaCl 25 ml/hr Alethea Swift RN Allergies steroids Vital Signs Time BP (mmHg) HR (bpm) O2 Sat. RR (bpm) LOC 04:09 PM 147 / 76 74 97 % 18 5 = Fully awake and oriented or at pre-proc level 04:12 PM / % 5 = Fully awake and oriented or at pre-proc level 04:12 PM / % 5 = Fully awake and oriented or at pre-proc level 04:27 PM / % 4 = Oriented but drowsy 04:43 PM / % 4 = Oriented but drowsy 04:58 PM / % 4 = Oriented but drowsy 05:13 PM / % 5 = Fully awake and oriented or at pre-proc level 04:53 PM 130 / 85 97 97 % 18 04:58 PM 132 / 90 101 97 % 20 05:03 PM 137 / 87 103 97 % 15 05:08 PM 130 / 78 100 94 % 16 05:13 PM 132 / 80 97 95 % 16 05:18 PM 125 / 82 103 95 % 19 05:23 PM 129 / 89 103 96 % 20 04:19 PM 150 / 91 93 92 % 23 04:23 PM 135 / 76 94 79 % 18 04:28 PM 132 / 76 89 96 % 14 04:33 PM 127 / 78 94 95 % 20 04:39 PM 124 / 79 96 97 % 16 04:43 PM 136 / 79 96 97 % 20 04:48 PM 126 / 84 96 99 % 18 Procedural Medications Time Medication Dose Units Method Given By 04:19 PM Oxygen 2 L/min nasal cannula Alethea Swift RN 04:22 PM Versed 2 mg Intravenous Alethea Swift RN 04:22 PM Fentanyl 50 mcg Intravenous Alethea Swift RN 04:27 PM Benadryl 25 mg Intravenous Alethea Swift RN 04:27 PM Lidocaine 2% 20 ml Subcutaneous Thuy Ray MD, FACC 04:45 PM Fentanyl 50 mcg Intravenous Alethea Swift RN 04:48 PM Angiomax 0.75mg/kg bolus: 14 ml Intravenous Alethea Swift RN 04:49 PM Angiomax 1.75mg/kg/hr: 33 ml/hr Intravenous Alethea Swift RN 04:57 PM Versed 1 mg Intravenous Alethea Swift RN 04:57 PM Fentanyl 25 mcg Intravenous Alethea Swift RN 04:59 PM Nitroglycerin 200 mcg Intracoronary Thuy Ray MD, FACC 05:01 PM Nitroglycerin 200 mcg Intracoronary Thuy Ray MD, FACC 05:04 PM Nitroglycerin 200 mcg Intracoronary Alethea Swift RN 05:04 PM Fentanyl 50 mcg Intravenous Alethea Swift RN 05:20 PM Nitroglycerin 200 mcg Intracoronary Thuy Ray MD, FACC 05:26 PM Plavix 300 mg Orally Alethea Swift RN ASA Classification: CLASS II- Mild systemic disease (i.e. well-controlled diabetes, hypertension, asthma, cigarette smoking) Alex Score Preprocedure Postprocedure Activity 2- Moves 4 extremities sustained head lift Activity Circulation 2- SBP +/= 20 points of pre-anesthetic level Circulation Consciousness 2- Awake and alert oriented x 3 Consciousness O2 Saturation 2- Able to maintain O2 satruation of 92% on room air O2 Saturation Respiratory 2- Able to deep breathe and cough well Respiratory Total Score 10 Total Score Contrast Agent: Isovue Diagnostic Contrast: 330 ml Total Contrast: 330 ml Fluoro Dose: 65686 mGy Procedure Log Time Note Enter By 04:09 PM Patient charges- Angio tray pack, Navilyst 3mm J, Pulse Oximetry and ACIST tubing and transducer [email or web address] 04:09 PM Shawn Dockery RT (R) Position: Monitor Time in: 16:09 [email or web address] 04:09 PM Ana Archuleta RT (R) Position: Scrub Time in: 16:09 [email or web address] 04:09 PM Alethea Swift RN Position: Lasting Room Machine Operator Time in: 16:09 [email or web address] 04:09 PM CathStat 04:10 PM Clinical Presentation: Non-STEMI [email or web address] 04:12 PM Pt arrived to boat laborer 2 at 16:12 [email or web address] 04:12 PM Time: 16:12 Patient comfortable and pain free: Yes [email or web address] 04:12 PM Time: 16:12LOC: 5 = Fully awake and oriented or at pre-proc level [email or web address] 04:12 PM Case Delayed No [email or web address] 04:14 PM Physician arrived 16:14 [email or web address] 04:14 PM Meet and greet completed [email or web address] 04:14 PM Sign in performed according to hospital policy. [email or web address] 04:14 PM Procedure start 16:14 [email or web address] 04:15 PM ASA Class CLASS II- Mild systemic disease (i.e. well-controlled diabetes, hypertension, asthma, cigarette smoking) [email or web address] 04:16 PM Hair removed from procedure site in procedure lab using clippers. Bilateral groin prepped with Chloraprep by Geremias, Ana RT (R), then patient was draped. Skin intact. [email or web address] 04:18 PM Vitals capture started with the following parameters, Patient=Adult, Interval=5 min, Initial Mdzckela=882 mmHg, Deflation Rate=5 mmHg, Cuff placed on Right Arm 04:18 PM Recorded ECG: HR=88 Condition=Condition 1 04:19 PM HR=93 bpm, QCGG=122/91 mmhg, SpO2=92.0 %, Resp=23 B/min 04:19 PM Time: 16:19 Oxygen on at 2 L/min per nasal cannula by Alethea Swift RN 04:22 PM Time: 16:22 Versed 2 mg Intravenous Given by Alethea Swift RN 04:22 PM Time: 16:22 Fentanyl 50 mcg Intravenous Given by Alethea Swift RN 04:23 PM HR=94 bpm, JHNH=826/76 mmhg, SpO2=79.0 %, Resp=18 B/min, EtCO2=37 mmHg 04:25 PM Pressure channel 1 zero failed. 04:25 PM Pressure channel 1 zero failed. 04:26 PM Pressure channel 1 zero failed. 04: PM Pressure channel 1 zeroed. 04:26 PM Time out performed according to hospital policy 04: PM Time: 16:27 Benadryl 25 mg Intravenous Given by Alethea Swift RN 04: PM Time: 16:12LOC: 5 = Fully awake and oriented or at pre-proc level : PM Time: 16:12 Patient comfortable and pain free: Yes 04:28 PM Time: 16:27 20 ml Lidocaine 2% to right groin Subcutaneous Given by Thuy Ray MD, [facility] 04:28 PM HR=89 bpm, GOTC=502/76 mmhg, SpO2=96.0 %, Resp=14 B/min, EtCO2=39 mmHg 04:29 PM Access obtained by percutaneous puncture. 5Fr 10cm Terumo [place] sheath placed in right Femoral artery. [id number] 04:29 PM 0.035 145cm Navilyst 3mmJ wire [id number] 04:29 PM 5Fr FL 4 catheter inserted over the wire [facility] 04:30 PM LCA angiography performed in multiple views. 04:31 PM Recorded Pressure: Ao, HR=92, Condition=Condition 1 (Aorta) Ao 117/78/96 04:32 PM Catheter removed 04:33 PM HR=94 bpm, RRFK=636/78 mmhg, SpO2=95.0 %, Resp=20 B/min, EtCO2=37 mmHg 04:33 PM 5Fr FR 4 catheter inserted over the wire [facility] [email or web address] 04:33 PM RCA angiography performed in multiple views. [email or web address] 04:34 PM Coronary Dominance: right [email or web address] 04:34 PM Recorded Pressure: Ao, HR=92, Condition=Condition 1 (Aorta) Ao 115/84/98 04:35 PM Catheter removed [email or web address] 04:36 PM 5Fr Pigtail catheter inserted over the wire DN [email or web address] 04:38 PM Catheter removed unable to cross. [email or web address] 04:39 PM HR=96 bpm, RDDQ=131/79 mmhg, SpO2=97.0 %, Resp=16 B/min, EtCO2=36 mmHg 04:43 PM Time: 16:27 Patient comfortable and pain free: Yes [email or web address] 04:43 PM Time: 16:27LOC: 4 = Oriented but drowsy [email or web address] 04:43 PM Physician reviewing films [email or web address] 04:43 PM HR=96 bpm, ZLQL=697/79 mmhg, SpO2=97.0 %, Resp=20 B/min, EtCO2=36 mmHg 04:45 PM Time: 16:45 Fentanyl 50 mcg Intravenous Given by Alethea Swift RN [email or web address] 04:47 PM Lesion found in 1st Diagonal. Pre Stenosis: 99 Pre HECTOR Flow: 2: Partial Flow/Perfusion (> 1 but < 3) [email or web address] 04:47 PM Mid/Distal Left Anterior Descending Coronary Artery and diagonal branches with 99% stenosis. If graft is supplying this area, 0 % stenosis [email or web address] 04:47 PM Inflation device was opened. [email or web address] 04:48 PM Sheath exchanged for a 6 Fr 11 cm Cordis Tiki sheath [id number] [email or web address] 04:48 PM HR=96 bpm, HMPA=186/84 mmhg, SpO2=99.0 %, Resp=18 B/min, EtCO2=38 mmHg 04:48 PM Time: 16:48 Angiomax 0.75mg/kg bolus: 14 ml Intravenous Given by Alethea Swift RN Rodriguez pump [email or web address] 04:49 PM 6Fr XB LAD 3.5 Cisne Bright-Tip guide catheter was used to cannulate the PCI vessel successfully. reused? No [email or web address] 04:49 PM Time: 16:49 Angiomax 1.75mg/kg/hr: 33 ml/hr Intravenous Given by Alethea Swift RN Rodriguez pump [email or web address] 04:50 PM Recorded Pressure: Ao, HR=97, Condition=Condition 1 (Aorta) Ao 131/71/93 04:50 PM .014 Prowater 180cm guide wire across target lesion- successful. reused? No [email or web address] 04:53 PM HR=97 bpm, SNZO=307/85 mmhg, SpO2=97.0 %, Resp=18 B/min, EtCO2=41 mmHg 04:56 PM .014 PT Graphix 182cm guide wire across target lesion- successful. reused? No [email or web address] 04:56 PM 1.5 mm x 8 mm Emerge Monorail balloon across target lesion- successful. reused? No [email or web address] 04:57 PM Balloon inflated @ 14 asaf for 20 seconds [email or web address] 04:57 PM Time: 16:57 Versed 1 mg Intravenous Given by Alethea Swift RN 04:57 PM Time: 16:57 Fentanyl 25 mcg Intravenous Given by Alethea Swift RN 04:58 PM Time: 16:43LOC: 4 = Oriented but drowsy [email or web address] 04:58 PM Time: 16:43 Patient comfortable and pain free: Yes [email or web address] 04:58 PM Balloon inflated @ 14 asaf for 20 seconds [email or web address] 04:58 PM OE=104 bpm, SSZL=476/90 mmhg, SpO2=97.0 %, Resp=20 B/min, EtCO2=36 mmHg 04:59 PM Balloon catheter removed intact. [email or web address] 04:59 PM Time: 16:59 Nitroglycerin 200 mcg Intracoronary Given by Thuy Ray MD, [facility] [email or web address] 05:01 PM Time: 17:01 Nitroglycerin 200 mcg Intracoronary Given by Thuy Ray MD, [facility] [email or web address] 05:03 PM AA=396 bpm, LWWQ=741/87 mmhg, SpO2=97.0 %, Resp=15 B/min, EtCO2=39 mmHg 05:04 PM Time: 17:04 Nitroglycerin 200 mcg Intracoronary Given by Alethea Swift RN 05:04 PM Time: 17:04 Fentanyl 50 mcg Intravenous Given by Alethea Swift RN 05:08 PM QN=355 bpm, QVPI=811/78 mmhg, SpO2=94.0 %, Resp=16 B/min, EtCO2=38 mmHg 05:13 PM Time: 16:58 Patient comfortable and pain free: Yes 2 05:13 PM Time: 16:58LOC: 4 = Oriented but drowsy [email or web address] 05:13 PM HR=97 bpm, ODGG=631/80 mmhg, SpO2=95.0 %, Resp=16 B/min, EtCO2=41 mmHg 05:13 PM 2.25mm x 12mm Synergy drug-eluting stent across target lesion- successful Lot #[id number] [email or web address] 05:17 PM Stent deployed @ 11 asaf for 30 seconds [email or web address] 05:18 PM Stent balloon reinflated @ 11 asaf for 15 seconds [email or web address] 05:18 PM IQ=678 bpm, UCAW=085/82 mmhg, SpO2=95.0 %, Resp=19 B/min, EtCO2=38 mmHg 05:19 PM Stent delivery system removed intact. 05:20 PM Time: 17:20 Nitroglycerin 200 mcg Intracoronary Given by Thuy Ray MD, FACC [email or web address] 05:20 PM Guide wire removed intact. [email or web address] 05:21 PM Guide wire removed intact. [email or web address] 05:21 PM Guide catheter removed intact. [email or web address] 05:21 PM Bolus angiogram of right Femoral complete: 4 ml/sec for a total of 7 mls [email or web address] 05:22 PM Procedure completed at 17:22 12/09/2017 [email or web address] 05:22 PM Sign out completed: Radiation Dose 1286.42 mGy, 34287 cGy/cm2 Fluoro Time: 11.8 Isovue 370 - 200ml contrast 330 ml given by Thuy Ray MD, FACC. Complications: NoneCardiac Rehab Consult needed: YesConfirmed administered medications: Yes 2 05:22 PM Isovue 370 - 200ml,3 Bottle(s) used. [email or web address] 05:22 PM Sheath left in place to be pulled on floor/holding areaV+Pad [email or web address] 05:22 PM Estimated Blood Loss: less than 20cc [email or web address] 05:23 PM Post ECG NSR [email or web address] 05:23 PM Post Blood Pressure 125/82 [email or web address] 05:23 PM 17:23 Post Pulses Bilateral DP & PT 1+ [email or web address] 05:23 PM Information taught Cardiac Cath and PCI [email or web address] 05:23 PM PM=453 bpm, MYKE=627/89 mmhg, SpO2=96.0 %, Resp=20 B/min 05:23 PM Education needs Procedure, Plan of Care, and Disease Process [email or web address] 05:24 PM Learning barriers :Sedated [email or web address] 05:24 PM Education Methods Verbal [email or web address] 05:24 PM Education evaluation Needs further instruction [email or web address] 05:24 PM Site status No bleeding/hematoma - Rt Groin as reported by Sites, Ana RT (R) at 17:24 [email or web address] 05:24 PM Opsite applied [email or web address] : PM Complications: None bw: PM Time: 17:26 Plavix 300 mg Orally Given by Alethea Swift RN [email or web address] 05:27 PM Family placed in consult room. [email or web address] 05:27 PM Lesion found in Proximal RCA. Pre Stenosis: 30 Pre HECTOR Flow: [email or web address] 05:27 PM Lesion found in Mid RCA. Pre Stenosis: 70 Pre HECTOR Flow: [email or web address] 05:27 PM Right Coronary, Right Posterior Descending Arteries with Right Posterolateral and Acute Marginal branches with 70 % stenosis. If graft is supplying this area, 0 % stenosis [email or web address] 05:28 PM Lesion found in Distal RCA. Pre Stenosis: 30 Pre HECTOR Flow: [email or web address] 05:28 PM Lesion found in Proximal LAD. Pre Stenosis: 50 Pre HECTOR Flow: [email or web address] 05:28 PM Proximal Left Anterior Descending Coronary Artery with 50% stenosis. If graft is supplying this territory, 0 % stenosis. [email or web address] 05:28 PM Time: 17:13LOC: 5 = Fully awake and oriented or at pre-proc level [email or web address] 05:28 PM Time: 17:13 Patient comfortable and pain free: Yes [email or web address] 05:28 PM Lesion found in Mid LAD. Pre Stenosis: 40 Pre HECTOR Flow: [email or web address] 05:29 PM Lesion found in Proximal Circumflex. Pre Stenosis: 40 Pre HECTOR Flow: [email or web address] 05:29 PM Lesion found in 1st Marginal. Pre Stenosis: 95 Pre HECTOR Flow: [email or web address] 05:29 PM Circumflex, Obtuse Marginal, Left Posterior Descending, and Left Posterolateral Coronary Arteries with 95 % stenosis. If graft is supplying this area, 0 % stenosis [email or web address] 05:29 PM Lesion found in Right PDA. Pre Stenosis: 99 Pre HECTOR Flow: [email or web address] 05:29 PM Right Coronary, Right Posterior Descending Arteries with Right Posterolateral and Acute Marginal branches with 99 % stenosis. If graft is supplying this area, 0 % stenosis [email or web address] 05:33 PM Patient out of room: 17:33 [email or web address] 05:37 PM Report given to baljeet LEONARD Pt taken to Room #15. 17:36 [email or web address] 05:37 PM Delay to floor No [email or web address] Complications Complication None None Hemodynamics Pressures Site Systolic/A Wave Diastolic/V Wave Mean AO 117 78 96 AO 115 84 98 AO 131 71 93 Post Procedure Information Blood Pressure: 125/82 mmHg Rhythm: NSR Post procedural instructions were given Site Checks Time Location Status Staff Sheath In? Note 05:24 PM Rt Groin No bleeding/hematoma Sites, Ana RT (R) Pulses Time Site Pre-Procedure Post-Procedure Note 12/09/2017 4:09:00 PM Bilateral DP & PT 1+ 5:23:00 PM Bilateral DP & PT 1+ Updated by Shawn Dockery RT (R) on 12/09/2017 5:38:01 PM Shawn Dockery RT electronically signed on 12/09/2017 5:38:30 PM with status of Final
[2017-12-09] MEDS ORDERED: 0.9 % Sodium Chloride 1,000 ML IVC SCH (18:15)
[2017-12-09] MEDS: Insulin LISPRO 300 UNITS/3 ML VIAL SQ SCH ×2 (18:25→21:32)
[2017-12-09] MEDS ORDERED: *HR* Atropine Sulfate 1 MG/10 ML SYRINGE ONE (20:26)
[2017-12-09] MEDS ORDERED: NON-FORMULARY MEDICATION 1 EACH EACH (Omega-3/Dha/Epa/Fish Oil [Fish Oil 1,000 Mg Softgel] PO SCH (21:00)
[2017-12-09] MEDS: Gabapentin 300 MG CAPSULE PO SCH (21:29)
--- NOTE | 2017-12-09 21:29 | Electrocardiograph Report ---
[facility] Test Date: 2017-12-09 Pat Name: Nicholas Pitt Department: EXAM12 Room: 2N15 Gender: M Academic Coach: : 1955 Requested By: Kameron Gilliland Order Number: [id number] Reading MD: Carlos Neil Measurements Intervals [place] Rate: 73 P: 52 NM: 150 QRS: 22 QRSD: 91 T: 160 QT: 389 QTc: 429 Interpretive Statements Sinus rhythm Probable left atrial enlargement Repol abnrm suggests ischemia, anterolateral Electronically Signed On 12-09-2017 21:27:58 EDT by Carlos Neil
[2017-12-09] MEDS: Lisinopril 20 MG TABLET PO SCH (21:30)
[2017-12-09] MEDS: hydrOXYzine pamoate 25 MG CAPSULE PO SCH (21:31)
[2017-12-10 06:50] LABS: Basophils # 0.1 K/mcL (0.0-0.2); Basophils % 0.9 %; Eosinophils # 0.2 K/mcL (0.0-0.6); Eosinophils % 2.2 %; Hematocrit 43.4 % (37.5-50.1); Immature Granulocytes % 0.5 % (0-4); Lymphocytes # 1.3 K/mcL (0.6-4.6); Lymphocytes % 12.1 %; Mean Corpuscular HGB Conc 34.6 g/dL (31.6-35.5); Mean Corpuscular Hemoglobin 31.2 pg (28.0-33.3); Mean Corpuscular Volume 90.2 fL (83.0-100.0); Mean Platelet Volume 9.6 fL (9.4-12.4); Monocytes % 9.3 %; Neutrophils # 8.3 K/mcL (1.6-8.9); Platelet Count 274 K/mcL (140-400); Red Blood Count 4.81 M/mcL (4.19-5.50); Red Cell Distribution Width 13.3 % (11.5-14.5)
[2017-12-10 06:56] LABS: INR 1.1; Prothrombin Time 11.9 Seconds (9.4-12.1)
[2017-12-10 06:58] LABS: Activated Partial Thrombo Time 32.8 Seconds (26.0-36.0)
[2017-12-10 07:14] LABS: Alanine Aminotransferase 20 Units/L (7-52); Albumin 3.9 g/dL (3.5-5.7); Albumin/Globulin Ratio 1.5 (1.1-2.2); Alkaline Phosphatase 71 Units/L (34-104); Aspartate Amino Transferase 19 Units/L (13-39); BUN/Creatinine Ratio 19 (6-26); Bilirubin,Total 0.8 mg/dL (0.3-1.0); Blood Urea Nitrogen 15 mg/dL (8-23); Calcium 9.2 mg/dL (8.6-10.3); Carbon Dioxide 27 mEq/L (23-29); Chloride 104 mEq/L (98-107); Chol/HDL Ratio 2.4 (0-4.9); Cholesterol 90 mg/dL (< 200); Globulin 2.6 g/dL (2.4-3.5); Glucose 132 mg/dL (70-105); HDL Cholesterol 37 mg/dL (40-59); LDL Cholesterol,Calculated 38 mg/dL (0-99); Magnesium 1.8 mg/dL (1.6-2.6); Osmolality,Calculated 287 (280-300); Potassium 4.1 mEq/L (3.5-5.1); Sodium 137 mEq/L (136-145); Total Protein 6.5 g/dL (6.4-8.9); Triglycerides 75 mg/dL (< 150); eGFR For Non-African Americans > 60 (> 60)
[2017-12-10] MEDS: Gabapentin 300 MG CAPSULE PO SCH ×2 (07:54→20:57)
[2017-12-10] MEDS: Aspirin Enteric Coated 81 MG Tablet PO SCH (07:54)
[2017-12-10] MEDS: Lisinopril 20 MG TABLET PO SCH ×2 (07:55→20:57)
[2017-12-10] MEDS: hydrOXYzine pamoate 25 MG CAPSULE PO SCH ×2 (07:55→20:58)
[2017-12-10] MEDS: Insulin LISPRO 300 UNITS/3 ML VIAL SQ SCH ×4 (08:00→20:59)
[2017-12-10] MEDS: *HR* Glimepiride 2 MG TABLET PO SCH (08:00)
[2017-12-10 08:17] LABS: Estimated Average Glucose 157 mg/dl; Hemoglobin A1C 7.1 %
--- NOTE | 2017-12-10 08:54 | Internal Med Progress Note ---
Hospitalist Progress Note - Encounter Date of Encounter: 12/10/17 Time of Encounter: 11:00 - Subjective Interval History: Patient for repeat left heart catheterization this morning - Exam Vitals: Temp Pulse Resp BP Pulse Ox 99.3 F 79 16 146/77 91 12/10/17 07:34 12/10/17 07:34 12/10/17 07:34 12/10/17 07:34 12/10/17 07:34 Exam: Gen.: Nonacute distress, alert and oriented 3 ENT: Mucosal membranes moist Respiratory: Lungs are clear to auscultation bilaterally without any wheezing rhonchi or rales Cardiovascular: Normal S1 and S2 regular rate rhythm no murmurs rubs or gallops Abdomen: Soft, nontender and nondistended with positive bowel sounds Extremities: No lower extremity edema Skin: Normal color - Assessment and Plan (1) NSTEMI (non-ST elevated myocardial infarction) Current Visit: Yes Status: Acute Assessment and Plan: Patient with history of coronary arterial disease with recent stent in July 2017 who presented with chest pain and shortness of breath found to have elevated troponins. Cardiology consulted with recommendations for left heart catheterization which showed severe three-vessel coronary artery disease and PTCA drug-eluting stent placed in the first diagonal. Relations to continue dual antiplatelet therapy in addition patient was staged PCI of RCA, PDA and OM Patient to go for a repeat left heart catheterization today (2) CAD (coronary artery disease) Current Visit: Yes Status: Chronic Assessment and Plan: She with a prior history of angioplasty/stent x1 in July 2017. Continue baby aspirin, Plavix, ADI inhibitor and beta nel (3) Aortic stenosis, moderate Current Visit: Yes Status: Acute Assessment and Plan: Acute aortic stenosis. Cardiology recommendations for repeat Echocardiogram due to current changes which is pending. (4) Diabetes Current Visit: Yes Status: Chronic Assessment and Plan: Continue to hold metformin and we will hold patient's midparietal as well while continuing low-dose correction sliding scale insulin with hypoglycemic protocol. (5) HTN (hypertension) Current Visit: Yes Status: Chronic Assessment and Plan: Controlled; continue Lisinopril and Lopressor. (6) HLD (hyperlipidemia) Current Visit: Yes Status: Chronic Assessment and Plan: /Statin (7) Chewing tobacco use Current Visit: Yes Status: Chronic Assessment and Plan: Hx of chronic chewing tobacco use. - Time Spent with Patient Total time spent is greater than 50% in coordination of care (as documented) at patient's floor/unit and/or counseling patient: Internal Medicine: Result - Labs CBC & Chem 7: 12/10/17 06:36 12/10/17 06:36 Labs: Short CBC 12/10/17 Range/Units 06:36 WBC 11.0 (4.3-11.1) K/mcL Hgb 15.0 (12.9-16.9) g/dL Hct 43.4 (37.5-50.1) % Plt Count 274 (140-400) K/mcL Neutrophils # 8.3 (1.6-8.9) K/mcL BMP 12/10/17 06:36 Sodium 137 Potassium 4.1 Chloride 104 Carbon Dioxide 27 BUN 15 Creatinine 0.79 Glucose 132 H Calcium 9.2 Cardiac Enzymes 12/10/17 Range/Units 00:23 Troponin I 0.22 H* (< 0.04) ng/mL Liver Function 12/10/17 Range/Units 06:36 Total Bilirubin 0.8 (0.3-1.0) mg/dL AST 19 (13-39) Units/L ALT 20 (7-52) Units/L Alkaline Phosphatase 71 (34-104) Units/L Albumin 3.9 (3.5-5.7) g/dL - ABG Interpretation ABG results: PT/INR, D-dimer PT 11.9 Seconds (9.4-12.1) 12/10/17 06:36 Consult Discharge Plan - Plan Referrals: Alison Scott [Primary Care Provider] - 12/12/17 8:00 am (Your appointment for 12-11-17 is cancelled) Adwoa Yuen [Partnered Physician] - 12/11/17 8:20 am (2) CAD (coronary artery disease) Qualifiers: Coronary Disease-Associated Artery/Lesion type: [place] artery [place] vs. transplanted heart: [place] heart Associated angina: with unstable angina Qualified Code(s): I25.110 - Atherosclerotic heart disease of [place] coronary artery with unstable angina pectoris (4) Diabetes Qualifiers: Diabetes mellitus type: type 2 Diabetes mellitus jail insulin use: without jail use Diabetes mellitus complication status: with unspecified complications Qualified Code(s): E11.8 - Type 2 diabetes mellitus with unspecified complications (5) HTN (hypertension) Qualifiers: Hypertension type: essential hypertension Qualified Code(s): I10 - Essential (primary) hypertension (6) HLD (hyperlipidemia) Qualifiers: Hyperlipidemia type: pure hypercholesterolemia Qualified Code(s): E78.00 - Pure hypercholesterolemia, unspecified; E78.0 - Pure hypercholesterolemia
--- NOTE | 2017-12-10 11:09 | Event Note ---
Date of Encounter: 12/10/17 Time of Encounter: 09:30 - Cardiology Event Note Patient is s/p LHC yesterday with PCI to diagonal 1, has remaining severe CAD. Patient denies chest pain today, reports still some mild shortness of breath. Patient agreeable for staged PCI inpatient. Risks versus benefits if LHC, staged PCI explained to patient and family. Patient states understanding and agreeable to proceed.
[2017-12-10] MEDS ORDERED: Ketorolac 30 MG/ML VIAL IVP ONE (11:59)
[2017-12-10] MEDS ORDERED: Aspirin Enteric Coated 325 MG Tablet PO ONE (13:11)
[2017-12-10] MEDS ORDERED: *HR* Heparin 10,000 UNIT/10 ML VIAL ONE ×2 (13:35→14:37)
[2017-12-10] MEDS ORDERED: Tirofiban 12.5 MG/250ML 12.5 MG/250 ML BAG ONE (13:35)
[2017-12-10] MEDS ORDERED: ISOVUE-370 200 ML INFUS..BTL IV ONE (13:35)
[2017-12-10] MEDS ORDERED: 0.9 % Sodium Chloride 1,000 ML ONE (13:35)
[2017-12-10] MEDS ORDERED: Heparin 1,000 UNITS/500 mL 500 ML ONE (13:35)
--- NOTE | 2017-12-10 13:36 | Pre-Sedation Evaluation ---
Pre-sedation evaluation - Pre-sedation checklist Date of procedure: 12/10/17 Procedure: [facility] Recent Vitals: Last Vital Signs Temp 98.6 F 12/10/17 11:45 Pulse 82 12/10/17 11:45 Resp 16 12/10/17 11:45 BP 141/80 12/10/17 11:45 Pulse Ox 91 12/10/17 11:45 H&P (including ROS) documented in medical record: Yes Previous reaction to sedatives/anesthetics: No Dietary Status: NPO after Midnight Dentition: No loose teeth or bridges ASA Classification *see protocol: CLASS II-Mild systemic disease Plan of Care: Pt appropriate candidate for procedure/moderate/conscious sedation , Risks/benefits of procedure/sedation discussed w/ patient/family Cardiac Registry (Cardio Only) - Functional Capacity Functional Capacity: >=4 METS with symptoms - Clincal Frailty Scale Clinical Frailty Scale: Managing Well
[2017-12-10] MEDS ORDERED: Haloperidol Lactate 5 MG/ML VIAL IVP ONE (13:42)
[2017-12-10] MEDS ORDERED: *HR* Midazolam HCl 5 MG/5 ML VIAL IVP ONE (13:47)
[2017-12-10] MEDS ORDERED: *HR* FentaNYL (PF) 100 MCG/2 ML VIAL ONE (13:47)
[2017-12-10] MEDS ORDERED: Haloperidol Lactate 5 MG/ML VIAL ONE (13:56)
--- NOTE | 2017-12-10 15:24 | Invasive Diagnostic Lab Proc ---
Name: Nicholas Pitt Date of Study: 12/10/2017 Date: 1955 Ht: 70.9in Medical Record#: [id number] Age: 62 Wt: 207.90lb Gender: Male BSA: 2.14 Order #: [id number] BMI: 29.1 Physicians Procedure Physician: Candelario Urbano MD, [facility] Referring MD: Referring MD: Staff Name Position Time In SarkisAna RT (R) Monitor 01:45 PM Tye Wynn RN Photographic Press Screwmaker 01:45 PM [facility] RT (R) Scrub 01:45 PM Indications Indication Non-Stemi Procedures Performed Procedure PRQ CARD IRIS STENT W/ANGIO 1 VSL Pre-Procedure Checklist Informed consent is complete signed and on chart. H&P is on chart. ID band is on and ID verified with patient. Patient NPO for procedure The procedure was described for the patient and questions were answered. Blood Pressure: 143/80 ECG is on chart. Rhythm: NSR Plan of Care Patient will tolerate the procedure without complications. Adequate level of comfort will be maintained. Hemodynamics will remain stable Patient will recover from procedure without complications. Respiratory function will be maintained. Cardiac rhythm will remain stable. Patient temperature will be maintained. Patient and/or family have verbalized understanding of the procedure. Patient Education Chief Complaint/Reason for Test: PCI Developmental Category: Geriatric (65+ years) Developmentally Appropriate for Age: Yes Learning Barriers: None Education Needs: Procedure Education Method: Verbal Information Taught: PCI Educational Evaluation: Able to repeat information Intravenous Access Time IV Size Location DC'd Fluid/Drip Rate Units RN 01:48 PM 18g 1 04/03" Patent On Arrival Rt Antecubital 0.9NaCl 25 ml/hr Tye Wynn RN Allergies steroids Vital Signs Time BP (mmHg) HR (bpm) O2 Sat. RR (bpm) LOC 01:45 PM / % 5 = Fully awake and oriented or at pre-proc level 01:46 PM / % 5 = Fully awake and oriented or at pre-proc level 01:46 PM / % 4 = Oriented but drowsy 02:01 PM / % 4 = Oriented but drowsy 02:16 PM / % 4 = Oriented but drowsy 02:33 PM / % 4 = Oriented but drowsy 02:33 PM / % 4 = Oriented but drowsy 01:53 PM 143 / 80 92 95 % 22 01:57 PM 133 / 77 90 92 % 21 02:02 PM 121 / 75 86 96 % 19 02:07 PM 119 / 79 81 93 % 17 02:12 PM 126 / 68 88 92 % 20 02:17 PM 130 / 72 94 93 % 19 02:22 PM 130 / 70 94 95 % 18 02:27 PM 114 / 72 91 94 % 18 02:33 PM 126 / 86 96 89 % 16 02:37 PM 128 / 79 96 89 % 18 02:42 PM 132 / 70 94 95 % 19 02:47 PM 139 / 73 95 96 % 17 02:52 PM 125 / 73 96 94 % 21 02:57 PM 139 / 71 86 95 % 18 03:02 PM 129 / 82 93 95 % 14 Procedural Medications Time Medication Dose Units Method Given By 01:46 PM Oxygen 2 L/min nasal cannula Tye Wynn RN 01:53 PM Versed 2 mg Intravenous Tye Wynn RN 01:53 PM Fentanyl 50 mcg Intravenous Tye Wynn RN 01:57 PM Haloperidol 5 mg Intravenous Tye Wynn RN 02:08 PM Lidocaine 2% 20 ml Subcutaneous Candelario Urbano MD, FACC 02:12 PM Heparin 4000 units Intravenous Tye Wynn RN 02:18 PM Nitroglycerin 200 mcg Intracoronary Candelario Urbano MD 02:26 PM Benadryl 25 mg Intravenous Tye Wynn RN 02:27 PM Versed 1 mg Intravenous Tye Wynn RN 02:27 PM Fentanyl 25 mcg Intravenous Tye Wynn RN 02:36 PM Heparin 3000 units Intravenous Tye Wynn RN 02:39 PM Nitroglycerin 200 mcg Intracoronary Candelario Urbano MD 03:11 PM Plavix 300 mg Orally Tye Wynn RN ASA Classification: CLASS II- Mild systemic disease (i.e. well-controlled diabetes, hypertension, asthma, cigarette smoking) Alex Score Preprocedure Postprocedure Activity 2- Moves 4 extremities sustained head lift Activity 2- Moves 4 extremities sustained head lift Circulation 2- SBP +/= 20 points of pre-anesthetic level Circulation 2- SBP +/= 20 points of pre-anesthetic level Consciousness 2- Awake and alert oriented x 3 Consciousness 2- Awake and alert oriented x 3 O2 Saturation 2- Able to maintain O2 satruation of 92% on room air O2 Saturation 2- Able to maintain O2 satruation of 92% on room air Respiratory 2- Able to deep breathe and cough well Respiratory 2- Able to deep breathe and cough well Total Score 10 Total Score 10 Contrast Agent: Isovue Diagnostic Contrast: 123 ml Total Contrast: 123 ml Fluoro Dose: 8393 mGy Activated Clotting Time Time Seconds to Clot 02:36 PM 215 03:03 PM 240 Procedure Log Time Note Enter By 01:45 PM Pt arrived to cath lab technologist 2 at 13:44 tsites 01:45 PM Physician arrived 13:45 tsites 01:45 PM Meet and greet completed tsites 01:45 PM Sign in performed according to hospital policy. tsites 01:45 PM Procedure start 13:45 tsites :45 PM Time: 13:45 Patient comfortable and pain free: Yes tsites :45 PM Time: 13:45LOC: 5 = Fully awake and oriented or at pre-proc level tsites 01:45 PM Ana Dockery RT (R) Position: Monitor Time in: 13:45 tsites 01:45 PM Tye Wynn RN Position: Photographic Press Screwmaker Time in: 13:45 tsites :45 PM Ana Archuleta RT (R) Position: Scrub Time in: 13:45 tsites 01:45 PM Patient charges- Angio tray pack, Navilyst 3mm J, Pulse Oximetry and ACIST tubing and transducer tsites :45 PM CathStat 01:46 PM Time: 13:46 Oxygen on at 2 L/min per nasal cannula by Tye Wynn RN twilson :46 PM Time: 13:46 Patient comfortable and pain free: Yes twilson :46 PM Time: 13:46LOC: 5 = Fully awake and oriented or at pre-proc level twilson 01:46 PM Case Delayed no twilson 01:47 PM Recorded ECG: HR=98 Condition=Condition 1 01:50 PM Recorded ECG: HR=95 Condition=Condition 1 01:51 PM Vitals capture started with the following parameters, Patient=Adult, Interval=5 min, Initial Nyqwqkpf=256 mmHg, Deflation Rate=5 mmHg, Cuff placed on Right Arm 01:53 PM HR=92 bpm, HAMT=891/80 mmhg, SpO2=95.0 %, Resp=22 B/min 01:53 PM ASA Class CLASS II- Mild systemic disease (i.e. well-controlled diabetes, hypertension, asthma, cigarette smoking) twilson :53 PM Time: 13:53 Versed 2 mg Intravenous Given by Tye Wynn RN twilson 01:53 PM Time: 13:53 Fentanyl 50 mcg Intravenous Given by Tye Wynn RN twilson 01:57 PM HR=90 bpm, KHSY=213/77 mmhg, SpO2=92.0 %, Resp=21 B/min 01:57 PM Time: 13:57 Haloperidol 5 mg Intravenous Given by Tye Wynn RN twilson 02:00 PM Pressure channel 1 zeroed. 02:01 PM Time: 13:46LOC: 4 = Oriented but drowsy twilson 02:01 PM Time: 13:46 Patient comfortable and pain free: Yes twilson 02:02 PM HR=86 bpm, OFZI=954/75 mmhg, SpO2=96.0 %, Resp=19 B/min 02:07 PM HR=81 bpm, BGIV=478/79 mmhg, SpO2=93.0 %, Resp=17 B/min 02:08 PM Time: 14:08 20 ml Lidocaine 2% to right groin Subcutaneous Given by Candelario Urbano MD, [facility] twilson 02:09 PM Access obtained by percutaneous puncture. 7Fr 10cm Terumo [place] sheath placed in right Femoral artery. [id number] twilson 02:11 PM 7Fr JR 4 Mach 1 guide catheter was used to cannulate the PCI vessel successfully. reused? No twilson 02:11 PM Inflation device was opened. twilson 02:12 PM Time: 14:12 Heparin 4000 units Intravenous Given by Tye Wynn RN twilson 02:12 PM Recorded Pressure: Ao, HR=86, Condition=Condition 1 (Aorta) Ao 114/64/82 02:12 PM HR=88 bpm, VPUR=192/68 mmhg, SpO2=92.0 %, Resp=20 B/min 02:13 PM RCA angiography performed in multiple views. twilson 02:13 PM Recorded Pressure: Ao, HR=89, Condition=Condition 1 (Aorta) Ao 124/67/89 02:13 PM .014 [place] 190cm guide wire across target lesion- successful. reused? No twilson 02:15 PM 2.0 mm x 20 mm Emerge Monorail balloon across target lesion- successful. reused? No twilson 02:16 PM Time: 14:01 Patient comfortable and pain free: Yes twilson 02:16 PM Time: 14:01LOC: 4 = Oriented but drowsy twilson 02:17 PM HR=94 bpm, AWCI=639/72 mmhg, SpO2=93.0 %, Resp=19 B/min 02:18 PM Time: 14:18 Nitroglycerin 200 mcg Intracoronary Given by Candelario Urbano MD ilson 02:18 PM Recorded Pressure: Ao, HR=96, Condition=Condition 1 (Aorta) Ao 110/70/87 02:21 PM Balloon catheter removed intact. twilson 02: PM Recorded Pressure: Ao, HR=96, Condition=Condition 1 (Aorta) Ao 109/69/86 02:22 PM HR=94 bpm, AWDJ=966/70 mmhg, SpO2=95.0 %, Resp=18 B/min 02:23 PM .014 PT Graphix 300cm guide wire across target lesion- successful. reused? No twilson : PM 2.0 mm x 15 mm Emerge OTW balloon across target lesion- successful. reused? No twilson : PM Time: 14:26 Benadryl 25 mg Intravenous Given by Tye Wynn RN ilson : PM Recorded Pressure: Ao, HR=93, Condition=Condition 1 (Aorta) Ao 106/73/88 02: PM Time: 14:27 Versed 1 mg Intravenous Given by Tye Wynn RN [facility] 02: PM Time: 14:27 Fentanyl 25 mcg Intravenous Given by Tye Wynn RN [facility] 02: PM PCI lesion in Right PDA. Pre Stenosis: 95 Pre HECTOR Flow: 3: Complete and Brisk Flow/Perfusion twilson : PM HR=91 bpm, ZBJI=033/72 mmhg, SpO2=94.0 %, Resp=18 B/min 02: PM Balloon inflated @ 10 asaf for 16 seconds twilson : PM Balloon inflated @ 14 asaf for 23 seconds twilson : PM Recorded Pressure: Ao, HR=94, Condition=Condition 1 (Aorta) Ao 107/77/90 02:30 PM Balloon catheter removed intact. tw: PM Time: 14:16LOC: 4 = Oriented but drowsy twilson : PM Time: 14:16 Patient comfortable and pain free: Yes twilson 02:33 PM HR=96 bpm, NAFF=743/86 mmhg, SpO2=89.0 %, Resp=16 B/min 02:33 PM Time: 14:33 Patient comfortable and pain free: Yes twilson 02:33 PM Time: 14:33LOC: 4 = Oriented but drowsy twilson 02:34 PM 2.25mm x 16mm Synergy drug-eluting stent across target lesion- successful Lot #[id number] twilson 02:34 PM Stent deployed @ 12 asaf for 14 seconds twilson 02:35 PM Recorded Pressure: Ao, HR=97, Condition=Condition 1 (Aorta) Ao 117/68/86 02:35 PM Stent delivery system removed intact. twilson 02:36 PM Time: 14:36 Heparin 3000 units Intravenous Given by Tye Wynn RN twilson 02:36 PM At 14:36 the ACT was 215 seconds. twilson 02:37 PM 2.25mm x 16mm Synergy drug-eluting stent across target lesion- successful Lot #[id number] twilson 02:37 PM HR=96 bpm, TNUH=906/79 mmhg, SpO2=89.0 %, Resp=18 B/min 02:38 PM Stent deployed @ 14 asaf for 29 seconds twilson 02:39 PM Time: 14:39 Nitroglycerin 200 mcg Intracoronary Given by Candelario Urbano MD twilson 02:40 PM Recorded Pressure: Ao, HR=98, Condition=Condition 1 (Aorta) Ao 120/71/94 02:42 PM HR=94 bpm, JFRY=412/70 mmhg, SpO2=95.0 %, Resp=19 B/min 02:43 PM 3.5mm x 24mm Synergy drug-eluting stent across target lesion- successful Lot #[id number] twilson 02:43 PM PCI lesion in Mid RCA. Pre Stenosis: 70 Pre HECTOR Flow: 3: Complete and Brisk Flow/Perfusion twilson 02:45 PM Recorded Pressure: Ao, HR=96, Condition=Condition 1 (Aorta) Ao 98/70/83 02:45 PM Stent deployed @ 18 asaf for 31 seconds twilson 02:45 PM Patient beginning to get aggitated. twilson 02:46 PM Recorded Pressure: Ao, HR=91, Condition=Condition 1 (Aorta) Ao 118/68/89 02:47 PM Long guidewire removed, intact. (PT Graphix) twilson 02:47 PM Recorded Pressure: Ao, HR=98, Condition=Condition 1 (Aorta) Ao 131/73/95 02:47 PM HR=95 bpm, VUJN=915/73 mmhg, SpO2=96.0 %, Resp=17 B/min 02:47 PM Stent delivery system removed intact. twilson 02:48 PM 4.0 mm x 12mm NC Trek Rx balloon across target lesion- successful. reused? No twilson 02:48 PM Recorded Pressure: Ao, HR=91, Condition=Condition 1 (Aorta) Ao 123/65/89 02:48 PM Time: 14:33 Patient comfortable and pain free: Yes twilson 02:48 PM Time: 14:33LOC: 4 = Oriented but drowsy twilson 02:49 PM Long guidewire reinserted. (PT Graphix) twilson 02:52 PM Balloon inflated @ 14 asaf for 14 seconds twilson 02:52 PM HR=96 bpm, LNTJ=995/73 mmhg, SpO2=94.0 %, Resp=21 B/min 02:54 PM Balloon inflated @ 14 asaf for 8 seconds twilson 02:54 PM Balloon inflated @ 14 asaf for 10 seconds twilson 02:55 PM Balloon inflated @ 14 asaf for 9 seconds twilson 02:55 PM Recorded Pressure: Ao, HR=91, Condition=Condition 1 (Aorta) Ao 128/78/100 02:55 PM Balloon inflated @ 14 asaf for 14 seconds twilson 02:56 PM Balloon inflated @ 14 asaf for 16 seconds twilson 02:56 PM Recorded Pressure: Ao, UF=618, Condition=Condition 1 (Aorta) Ao 117/78/95 02:56 PM Balloon inflated @ 16 asaf for 15 seconds twilson 02:57 PM Balloon catheter removed intact. twilson 02:57 PM HR=86 bpm, OJAS=941/71 mmhg, SpO2=95.0 %, Resp=18 B/min 02:58 PM Balloon catheter removed intact. twilson 02:58 PM Guide wires removed intact. twilson 02:58 PM J=wire reinserted. twilson 02:58 PM Guide catheter removed intact. J-wire removed, intact. twilson 02:58 PM Bolus angiogram of right Femoral complete: 4 ml/sec for a total of 7 mls twilson 02:59 PM Coronary Dominance: right twilson 02:59 PM Procedure completed at 14:59 12/10/2017 twilson 02:59 PM Did you address HECTOR flow and Dominance? Yes twilson 03:00 PM Sign out completed: Radiation Dose 1576.99 mGy, 8392.58 cGy/cm2 Fluoro Time: 18.4 Isovue 370 - 200ml contrast 123 ml given by Candelario Urbano MD, [facility]. Complications: NoneCardiac Rehab Consult needed: YesConfirmed administered medications: Yes twilson 03:00 PM Isovue 370 - 200ml,1 Bottle(s) used. twilson 03:00 PM Sheath left in place to be pulled on floor/holding areaV+Pad twilson 03:00 PM Estimated Blood Loss: less than 20cc twilson 03:00 PM Post ECG NSR twilson 03:00 PM Post Blood Pressure 139/71 twilson 03:00 PM 15:00 Post Pulses Bilateral DP & PT 2+ twilson 03:00 PM 15:00 Post Pulses Bilateral radial 2+ twilson 03:01 PM Information taught PCI twilson 03:01 PM Education needs Procedure, Plan of Care, and Responsibilities of Patient in Care twilson 03:01 PM Learning barriers :None twilson 03:01 PM Education Methods Verbal twilson 03:01 PM Education evaluation Able to repeat information twilson 03:01 PM Site status No bleeding/hematoma - Rt Groin as reported by Sites, Ana RT (R) at 15:01 twilson 03:02 PM HR=93 bpm, ZGWP=262/82 mmhg, SpO2=95.0 %, Resp=14 B/min 03:03 PM At 15:03 the ACT was 240 seconds. twilson 03:08 PM Family placed in consult room. twilson 03:09 PM Report given to Cici LEONARD Pt taken to 2N Room #15. 15:08 twilson 03:12 PM Time: 15:11 Plavix 300 mg Orally Given by Tye Wynn RN twilson 03:12 PM Plavix, Effient or Brilinta given Yes twilson 03:13 PM Patient out of room: 15:13 [facility] Complications Complication None Hemodynamics Pressures Site Systolic/A Wave Diastolic/V Wave Mean AO 114 64 82 AO 124 67 89 AO 110 70 87 AO 109 69 86 AO 106 73 88 AO 107 77 90 AO 117 68 86 AO 120 71 94 AO 98 70 83 AO 118 68 89 AO 131 73 95 AO 123 65 89 AO 128 78 100 AO 117 78 95 Post Procedure Information Blood Pressure: 139/71 mmHg Rhythm: NSR Post procedural instructions were given Site Checks Time Location Status Staff Sheath In? Note 03:01 PM Rt Groin No bleeding/hematoma Sites, Ana RT (R) Pulses Time Site Pre-Procedure Post-Procedure Note 12/10/2017 1:48:00 PM Bilateral DP & PT 2+ 12/10/2017 1:48:00 PM Bilateral radial 2+ 3:00:00 PM Bilateral DP & PT 2+ 3:00:00 PM Bilateral radial 2+ Updated by RT Eulogio Morrison) on 12/10/2017 3:14:16 PM electronically signed on 12/10/2017 3:15:20 PM with status of Final
[2017-12-10] MEDS ORDERED: *HR* Atropine Sulfate 1 MG/10 ML SYRINGE ONE (17:09)
--- NOTE | 2017-12-10 17:38 | Electrocardiograph Report ---
[address] [place], [place] [address] Test Date: 2017-12-10 Pat Name: Nicholas Pitt Department: 110 Room: 15 Gender: M Assembler Unit: : 1955 Requested By: Thuy Ray Order Number: [id number] Reading MD: Sivakumar Gama Measurements Intervals [place] Rate: 84 P: 51 SD: 159 QRS: 15 QRSD: 92 T: 135 QT: 367 QTc: 408 Interpretive Statements SINUS RHYTHM Anterolateral ST-T changes suggestive of ischemia Electronically Signed On 12-10-2017 17:36:41 EDT by Sivakumar Gama
--- NOTE | 2017-12-10 17:57 | Electrocardiograph Report ---
[address] [address] Test Date: 2017-12-09 Pat Name: Nicholas Pitt Department: EXAM12 Room: 2N15 Gender: M Targeting Acquisition Officer: : 1955 Requested By: Kameron Gilliland Order Number: [id number] Reading MD: Sivakumar Gama Measurements Intervals [place] Rate: 69 P: 60 AR: 145 QRS: 16 QRSD: 90 T: 159 QT: 400 QTc: 429 Interpretive Statements Sinus rhythm Possible left atrial enlargement Anterolateral ST-T changes possibly due to ischemia Electronically Signed On 12-10-2017 17:55:51 EDT by Sivakumar Gama
[2017-12-11 07:50] LABS: Basophils # 0.1 K/mcL (0.0-0.2); Basophils % 0.8 %; Eosinophils # 0.3 K/mcL (0.0-0.6); Eosinophils % 2.6 %; Hematocrit 44.8 % (37.5-50.1); Hemoglobin 15.4 g/dL (12.9-16.9); Immature Granulocytes % 0.4 % (0-4); Lymphocytes # 1.1 K/mcL (0.6-4.6); Lymphocytes % 10.9 %; Mean Corpuscular HGB Conc 34.4 g/dL (31.6-35.5); Mean Corpuscular Hemoglobin 30.9 pg (28.0-33.3); Mean Platelet Volume 9.9 fL (9.4-12.4); Monocytes # 1.1 K/mcL (0.0-1.3); Monocytes % 10.4 %; Neutrophils # 7.7 K/mcL (1.6-8.9); Platelet Count 270 K/mcL (140-400); Red Blood Count 4.98 M/mcL (4.19-5.50); Red Cell Distribution Width 13.2 % (11.5-14.5); Segmented Neutrophils % 74.9 %
[2017-12-11] MEDS: *HR* Glimepiride 2 MG TABLET PO SCH (07:57)
[2017-12-11] MEDS: hydrOXYzine pamoate 25 MG CAPSULE PO SCH (07:57)
[2017-12-11] MEDS: Gabapentin 300 MG CAPSULE PO SCH (07:57)
[2017-12-11] MEDS: Lisinopril 20 MG TABLET PO SCH (07:58)
[2017-12-11] MEDS: Aspirin Enteric Coated 81 MG Tablet PO SCH (07:58)
[2017-12-11 08:00] LABS: Alanine Aminotransferase 18 Units/L (7-52); Albumin 3.9 g/dL (3.5-5.7); Albumin/Globulin Ratio 1.4 (1.1-2.2); Alkaline Phosphatase 76 Units/L (34-104); Aspartate Amino Transferase 21 Units/L (13-39); BUN/Creatinine Ratio 18 (6-26); Bilirubin,Total 1.1 mg/dL (0.3-1.0); Blood Urea Nitrogen 14 mg/dL (8-23); Calcium 9.2 mg/dL (8.6-10.3); Carbon Dioxide 25 mEq/L (23-29); Chloride 104 mEq/L (98-107); Globulin 2.7 g/dL (2.4-3.5); Glucose 141 mg/dL (70-105); Osmolality,Calculated 285 (280-300); Potassium 3.9 mEq/L (3.5-5.1); Sodium 136 mEq/L (136-145); Total Protein 6.6 g/dL (6.4-8.9); eGFR For Non-African Americans > 60 (> 60)
[2017-12-11] MEDS: Insulin LISPRO 300 UNITS/3 ML VIAL SQ SCH (08:00)
--- NOTE | 2017-12-11 10:50 | Cardiology Progress Note ---
Date of Encounter: 12/11/17 Time of Encounter: 09:30 Assessment and Plan (1) NSTEMI (non-ST elevated myocardial infarction) Current Visit: Yes Status: Acute Per cardiology: -Troponins 0.21, 0.22. -S/p [facility] 12/09 and 12/10 with IRIS placed. -Denies chest pain. -On asa, plavix. statin, BB. Educated on dual anti-platelet therapy uninterrupted for at least one year, states understanding. -TTE with LVEF preserved, no segmental wall motion abnormalities noted. -Right groin access site with mild ecchymosis, no hematoma. Right groin access site management education reviewed with patient. -Cardiology will sign off and will follow in outpatient setting. Follow up set. (2) Aortic stenosis Current Visit: Yes Status: Chronic Per cardiology: -Previously moderate 07/2017 now moderate-severe . -Patient and family expressed interest in referral to [place] for TAVR evaluation. -Currently euvolemic on exam. -Cardiology will follow in outpatient setting and will arrange outpatient referral. Qualifiers: Cardiac valve disease etiology: etiology unspecified Qualified Code(s): I35.0 - Nonrheumatic aortic (valve) stenosis Discussion w patient/family: The assessment and plan as outlined above was discussed with the patient and/or family members who expressed understanding and agreement. All questions were answered. Thank you for involving us in the care of your patient. Please call with any questions. Discussed and reviewed with . Subjective Principal diagnosis: NSTEMI Interval history: Patient denies chest pain. Denies issues walking or using right leg. Objective Vital Signs, Last 4 Hours Temp Pulse Resp BP Pulse Ox 12/11/17 07:03 99.3 F 89 17 149/93 92 General: Conversant, No Apparent Distress HEENT: Atraumatic, Normocephaly, Mucus Membranes Moist Neck: No JVD, Normal carotid pulses Cardiac: Reg Rate and Rhythm, Normal S1 and S2, Other (Systolic murmur noted. ) Lungs: Normal Breath Sounds, No Wheeze, Rales, Rhonchi Neuro: Alert and responsive, No focal deficits noted Abdomen: Soft, Non-Tender Skin: No rashes noted on visualized skin, Other (Right groin access site with mild ecchymosis, no hematoma. ) Musculoskeletal: No Chest Wall Tenderness Extremities: No Clubbing, No Cyanosis, No Edema, Normal Pulses Results 12/11/17 07:05 12/11/17 07:05 Lab Results Active Medications Acetaminophen (Tylenol) 650 mg PO Q6HR PRN PRN Reason: Mild Pain/Fever Stop: 06/10/18 15:00 Last Admin: 12/10/17 04:44 Dose: 650 mg Hydrocodone Bitart/Acetaminophen ([place] 5-325 Mg) 1 tab PO Q6HR PRN PRN Reason: Moderate Pain Stop: 06/10/18 15:00 Aspirin (Aspirin Ec) 81 mg PO DAILY [facility] Stop: 06/11/18 09:01 Last Admin: 12/11/17 07:58 Dose: 81 mg Atorvastatin Calcium (Lipitor) 80 mg PO HS [facility] Stop: 06/10/18 21:01 Last Admin: 12/10/17 20:57 Dose: 80 mg Clopidogrel Bisulfate (Plavix) 75 mg PO DAILY [facility] Stop: 06/11/18 09:01 Last Admin: 12/11/17 07:57 Dose: 75 mg Dextrose/Water (Dextrose 50% (Syg)) 25 ml IVP AD PRN PRN Reason: Hypoglycemia Stop: 06/10/18 14:59 Duloxetine HCl (Cymbalta) 60 mg PO DAILY [facility] Stop: 06/11/18 09:01 Last Admin: 12/11/17 07:57 Dose: 60 mg Gabapentin (Neurontin) 600 mg PO BID [facility] Stop: 06/10/18 21:01 Last Admin: 12/11/17 07:57 Dose: 600 mg Glimepiride (Amaryl) 2 mg PO DAILY@0800 [facility] Stop: 06/11/18 08:01 Last Admin: 12/11/17 07:57 Dose: 2 mg Glucagon (Glucagen) 1 mg IM ONCE PRN PRN Reason: Hypoglycemia Stop: 06/10/18 14:59 Glucose (Gluctose) 15 gm PO ONCE PRN PRN Reason: Hypoglycemia Stop: 06/10/18 14:59 Glucose (Gluctose) 30 gm PO ONCE PRN PRN Reason: Hypoglycemia Stop: 06/10/18 14:59 Hydralazine HCl (Hydralazine) 10 mg IVP Q6HR PRN PRN Reason: Hypertension Stop: 06/10/18 15:49 Hydroxyzine Pamoate (Hydroxyzine Pamoate) 25 mg PO BID [facility] Stop: 06/10/18 21:01 Last Admin: 12/11/17 07:57 Dose: 25 mg Dextrose (Dextrose 5%) 1,000 mls @ 100 mls/hr IVC .Q10H PRN PRN Reason: HYPOGLYCEMIA Stop: 06/10/18 14:59 Insulin Human Lispro (Humalog) 0 units SQ TIDAC ALTHEA PRN Reason: Protocol Stop: 06/10/18 16:31 Last Admin: 12/11/17 08:00 Dose: Not Given Insulin Human Lispro (Humalog) 0 units SQ HS [facility] PRN Reason: Protocol Stop: 06/10/18 21:01 Last Admin: 12/10/17 20:59 Dose: Not Given Lisinopril (Zestril) 20 mg PO BID ALTHEA PRN Reason: Protocol Stop: 06/10/18 21:01 Last Admin: 12/11/17 07:58 Dose: 20 mg Metoprolol Tartrate (Lopressor) 12.5 mg PO BID [facility] Stop: 06/10/18 21:01 Last Admin: 12/11/17 07:57 Dose: 12.5 mg Naloxone HCl (Narcan) 0.4 mg IVP Q2MIN PRN PRN Reason: SEE COMMENTS Stop: 06/10/18 15:00 Nitroglycerin (Nitroglycerin) 0.4 mg SL Q5MIN PRN PRN Reason: Chest Pain Stop: 06/10/18 15:00 Tamsulosin HCl (Flomax) 0.4 mg PO DAILY [facility] PRN Reason: Protocol Stop: 06/11/18 09:01 Last Admin: 12/11/17 07:57 Dose: 0.4 mg Laboratory Tests 12/11/17 12/11/17 07:05 07:05 Hgb 15.4 Creatinine 0.79 - Imaging and Cardiology Chest Xray: report reviewed Echo: report reviewed Cardiac cath: report reviewed - EKG Interpretation EKG results cardiology: other (Telemetry reviewed with average HR previous 12 hours noted to be 86, SR. PACs noted.) Consult Discharge Plan - Plan Referrals: Alison Scott [Primary Care Provider] - 12/12/17 8:00 am (Your appointment for 12-11-17 is cancelled) Adwoa Yuen [Partnered Physician] - 12/11/17 8:20 am
--- NOTE | 2017-12-11 11:02 | Discharge Summary ---
- NOTES TO OUTPATIENT PROVIDER Notes to Outpatient Provider: Follow up with cardiology Orders not resulted at time of discharge: Pending orders 12/09/17 18:04 ECG 12 lead ECG [ECG] Stat 12/10/17 11:09 CL Cardiac Catheterization [CL] Routine 12/12/17 04:00 Complete Blood Count [HEME] AM 0400 Comprehensive Metabolic Panel AM 0400 12/13/17 04:00 Complete Blood Count [HEME] AM 0400 Comprehensive Metabolic Panel AM 0400 12/14/17 04:00 Complete Blood Count [HEME] AM 0400 Comprehensive Metabolic Panel AM 0400 Date of Encounter: 12/11/17 Time of Encounter: 11:00 - Discharge Diagnosis (1) NSTEMI (non-ST elevated myocardial infarction) Priority: Primary Status: Acute (2) CAD (coronary artery disease) Priority: Secondary Status: Chronic Qualifiers: Coronary Disease-Associated Artery/Lesion type: [place] artery [place] vs. transplanted heart: [place] heart Associated angina: with unstable angina Qualified Code(s): I25.110 - Atherosclerotic heart disease of [place] coronary artery with unstable angina pectoris (3) Aortic stenosis, moderate Priority: Secondary Status: Acute (4) Diabetes Priority: Secondary Status: Chronic Qualifiers: Diabetes mellitus type: type 2 Diabetes mellitus oil heaterman insulin use: without oil heaterman use Diabetes mellitus complication status: with unspecified complications Qualified Code(s): E11.8 - Type 2 diabetes mellitus with unspecified complications (5) HTN (hypertension) Priority: Secondary Status: Chronic Qualifiers: Hypertension type: essential hypertension Qualified Code(s): I10 - Essential (primary) hypertension (6) HLD (hyperlipidemia) Priority: Secondary Status: Chronic Qualifiers: Hyperlipidemia type: pure hypercholesterolemia Qualified Code(s): E78.00 - Pure hypercholesterolemia, unspecified; E78.0 - Pure hypercholesterolemia (7) Chewing tobacco use Priority: Secondary Status: Chronic Hospital course: Patient is a 62-year-old male with past medical history significant for HTN, HLD , urinary retention, and anxiety presents to the ER on 12/09/17 due to chest pain. He states radiates to the central back of his neck. States that the discomfort is not sharp/stabbing pain or pressure but a feeling similar prior to his angioplasty in July 2017. No hx/dx of CHF or COPD. In the ER, patient was found to have elevated troponins and was admitted to the medical surgical floor for management of non-STEMI. During patients hospital stay cardiology was consulted with recommendations for a left heart catheterization and IRIS was placed. Recommendations for patient to be discharged to continue uninterrupted dual antiplatelet therapy for 1 year in addition to statin and beta nel. - Time Spent with Patient Total time spent providing and/or coordinating discharge services: Less than 30 minutes - Discharge Medications Home Medications: Aspirin [Lo-Dose Aspirin EC] 81 mg PO DAILY 08/01/17 [History] Duloxetine HCl [Cymbalta] 60 mg PO DAILY 08/01/17 [History] Gabapentin [Neurontin] 600 mg PO BID 08/01/17 [History] Lisinopril [Zestril] 20 mg PO BID 08/01/17 [History] [place]-3/Dha/Epa/Fish Oil [Fish Oil 1,000 mg Softgel] 1 tab PO BID 08/01/17 [ History] Sitagliptin Phos/Metformin HCl [Janumet Xr 100-1,000 mg Tablet] 1 each PO DAILY 08/01/17 [History] Tamsulosin [Flomax] 0.4 mg PO DAILY 08/01/17 [History] hydrOXYzine HCl [Hydroxyzine HCl] 25 mg PO BID 08/01/17 [History] Atorvastatin [Lipitor] 80 mg PO HS #30 tablet 08/02/17 [Rx] Metoprolol [Lopressor] 12.5 mg PO BID #60 tablet 08/02/17 [Rx] Nitroglycerin 0.4 mg SL Q5MIN PRN #30 tab.subl 08/02/17 [Rx] Clopidogrel [Plavix] 75 mg PO DAILY 12/09/17 [History] Glimepiride [Amaryl] 2 mg PO DAILY 12/09/17 [History] Ibuprofen [Ibu] 800 mg PO TID PRN 12/09/17 [History] Metformin HCl 1,000 mg PO QPM 12/09/17 [History] Allergies/Adverse Reactions: 3 Allergy/AdvReac Type Severity Reaction Status Date / Time steroids Allergy Rash Uncoded 08/01/17 08:29 Date of admission: 12/09/17 14:23 Primary care physician: Alison Scott Consults: 12/09/17 15:07 Consult to Medicine Tech [CONS] Routine Reason for SW Consult: Please assess patient for possible home needs for post -discharge planning. 12/09/17 18:04 Consult to Cardiac Rehabilitation-Phase1 [CONS] Routine Comment: Reason for Consult: post op PCI Call Completed: Yes - Constitutional Vitals: Temp Pulse Resp BP Pulse Ox 99.3 F 89 17 149/93 92 12/11/17 07:03 12/11/17 07:03 12/11/17 07:03 12/11/17 07:03 12/11/17 07:03 General appearance: Present: cooperative, A&O X 2, A&O X 3, pleasant, no acute distress, obese, answers questions appropriately Exam: Gen.: Nonacute distress, alert and oriented 3 ENT: Mucosal membranes moist Respiratory: Lungs are clear to auscultation bilaterally without any wheezing rhonchi or rales Cardiovascular: Normal S1 and S2 regular rate rhythm no murmurs rubs or gallop Skin: Normal color - Patient Status Disposition: Home, Self-Care Condition: Good - Discharge Instructions Instructions: Myocardial Infarction (DC), Left Heart Catheterization (DC) Follow Up With: Alison Scott [Primary Care Provider] - 12/12/17 8:00 am (Your appointment for 12-11-17 is cancelled) Adwoa Yuen [Partnered Physician] - (OFFICE WILL CALL WITH FOLLOWUP) Additional Instructions: RISK FACTORS: STOP SMOKING: If you smoke, STOP. Smoking or tobacco use significantly increases your risk of heart disease because nicotine causes the arteries to narrow or constrict. It also causes fats to stick to the artery. Your chances of having a heart attack are greatly increased if you continue to smoke. For more information, call the education line for smoking cessation 9-960-[id number] EAT A LOW FAT/CHOLESTEROL/SODIUM DIET: This diet may help reduce your chances of having a heart attack. LIFTING: Avoid lifting anything more than 10 pounds for 5-7 days Prior to straining, laughing, sneezing and/or coughing, apply manual pressure directly over insertion site. ACTIVITY: You may walk or climb stairs as tolerated You can resume sexual activity as tolerated In general, you are encouraged to engage in a minimum of 30 minutes or more of moderate intensity physical activity, such as brisk walking, daily or at least 3 -4 times weekly BATHING Do not submerge the site into water (bath tub, hot tub, swimming pool) for 1 week. This can be a source for infection into the blood stream. You may shower after 24 hours SITE CARE: After 24 hours, you may remove the dressing and leave the site open to air. Keep the site clean and dry. Clean gently and pat dry. You can expect bruising and tenderness that gradually resolve within a week or two. Return to work as instructed per your physician Resume driving as instructed per physician Keep all scheduled follow up appointments Resume medications as instructed IMPORTANT: If prescribed a Platelet Aggregation Inhibitor such as, Plavix, Brilinta or Effient: Duration of therapy is minimum one year These medications are often used in combination with Aspirin in prevention of future heart attacks Never discontinue unless consult with your Central Supply Worker STROKE (CVA) Risk factors for a stroke are: Age, cigarette smoking, diabetes, excessive alcohol consumption, family history, high blood pressure, overweight, physical inactivity, prior stroke, heart attack, diagnosis of carotid artery stenosis or other artery disease. Warning signs: Sudden numbness or weakness of the face, arm or leg; especially on one side of the body, sudden confusion, trouble speaking or understanding, sudden trouble seeing in one or both eyes, sudden trouble walking, dizziness, loss of balance or coordination, sudden severe headache with no cause. Call 911 or go to the Emergency Room. CONGESTIVE HEART FAILURE: If you have been diagnosed with Congestive Heart Failure (CHF) and your symptoms return, make an appointment with your physician Weigh yourself daily. Notify your physician if you have a weight gain of two or more pounds in one day or five or more pounds in one week. If you experience any difficulty breathing, please call 911 BLEEDING: Although the risk of bleeding is minimal, it can happen. If you have any bleeding from the site, apply firm pressure above the puncture site for 10-15 minutes. If the bleeding does not stop, continue manual pressure and call 911 Contact your physician if: You develop a fever greater than 101 degrees Fahrenheit Your site becomes reddened or has any drainage You have an increase in pain or burning at the site or if a large knot forms at the site. If you experience chest pain, shortness of breath, dizziness, or extreme tiredness, stop the activity and rest. Please notify your physicians office if you experience any of these symptoms and they are not relieved by rest please call 911!
[2017-12-11 11:22] VITALS: BP 124/77
== END 2017-12-11 12:39 | disposition home or self-care (01) | DRG 246 ==
LOC: EMEROOARM 11:53 → SUATTDRO 14:23 → 2NENU 14:23 → 2NNU 18:03
PROVIDERS: ADMIT Student in an Organized Health Care Education/Training Program; ATTEND Hospitalist

== ENCOUNTER 2019-01-10 14:14 | Observation (INO) ==
[2019-01-10] MEDS ORDERED: Metoclopramide 10 MG/2 ML VIAL IVP ONE (14:31)
[2019-01-10] MEDS ORDERED: 0.9 % Sodium Chloride 1,000 ML IVC ONE (14:43)
[2019-01-10 14:47] LABS: Hemoglobin 16.7 g/dL (12.9-16.9); Mean Corpuscular HGB Conc 34.8 g/dL (31.6-35.5); Mean Corpuscular Hemoglobin 31.7 pg (28.0-33.3); Mean Corpuscular Volume 91.1 fL (83.0-100.0); Mean Platelet Volume 9.1 fL (9.4-12.4); Platelet Count 286 K/mcL (140-400); Red Blood Count 5.27 M/mcL (4.19-5.50); Red Cell Distribution Width 12.5 % (11.5-14.5); White Blood Count 8.8 K/mcL (4.3-11.1)
[2019-01-10 14:55] LABS: INR 0.9; Prothrombin Time 10.7 Seconds (9.4-12.1)
[2019-01-10 14:57] LABS: Activated Partial Thrombo Time 33.1 Seconds (26.0-36.0)
[2019-01-10 15:14] LABS: BUN/Creatinine Ratio 26 (6-26); Blood Urea Nitrogen 23 mg/dL (8-23); Calcium 10.3 mg/dL (8.6-10.3); Carbon Dioxide 29 mEq/L (23-29); Chloride 99 mEq/L (98-107); Glucose 150 mg/dL (70-105); Osmolality,Calculated 289 (280-300); Potassium 4.1 mEq/L (3.5-5.1); Sodium 136 mEq/L (136-145); Troponin I < 0.03 ng/mL (< 0.04); eGFR For African Americans > 60 (> 60); eGFR For Non-African Americans > 60 (> 60)
[2019-01-10] MEDS ORDERED: Aspirin 81 MG TAB.CHEW PO STA (15:27)
[2019-01-10] MEDS ORDERED: Ondansetron 4 MG/2 ML VIAL IVP PRN (16:20)
[2019-01-10] MEDS ORDERED: Naloxone 0.4 MG/ML INJ IVP PRN (16:20)
[2019-01-10] MEDS ORDERED: Acetaminophen 325 MG TABLET PO PRN (16:25)
[2019-01-10] MEDS ORDERED: *HR* Dextrose 50 % in Water (Syg) 50 ML SYRINGE IVP PRN (16:31)
[2019-01-10] MEDS ORDERED: Dextrose Gel 15 GM/37.5 ML TUBE PO PRN ×2 (16:31)
[2019-01-10] MEDS ORDERED: D5% in Water 1,000 ML IVC PRN (16:31)
[2019-01-10] MEDS ORDERED: Insulin LISPRO 300 UNITS/3 ML VIAL SQ SCH (21:00)
[2019-01-11 02:28] LABS: Hematocrit 46.9 % (37.5-50.1); Hemoglobin 15.9 g/dL (12.9-16.9); Mean Corpuscular HGB Conc 33.9 g/dL (31.6-35.5); Mean Corpuscular Hemoglobin 31.1 pg (28.0-33.3); Mean Corpuscular Volume 91.6 fL (83.0-100.0); Platelet Count 257 K/mcL (140-400); Red Blood Count 5.12 M/mcL (4.19-5.50); Red Cell Distribution Width 12.6 % (11.5-14.5); White Blood Count 7.5 K/mcL (4.3-11.1)
[2019-01-11 02:35] LABS: Prothrombin Time 11.5 Seconds (9.4-12.1)
[2019-01-11 02:47] LABS: Alanine Aminotransferase 27 Units/L (7-52); Albumin 4.1 g/dL (3.5-5.7); Albumin/Globulin Ratio 1.6 (1.1-2.2); Alkaline Phosphatase 70 Units/L (34-104); Aspartate Amino Transferase 24 Units/L (13-39); BUN/Creatinine Ratio 24 (6-26); Bilirubin,Total 0.8 mg/dL (0.3-1.0); Blood Urea Nitrogen 19 mg/dL (8-23); Calcium 9.4 mg/dL (8.6-10.3); Carbon Dioxide 26 mEq/L (23-29); Chloride 102 mEq/L (98-107); Chol/HDL Ratio 3.3 (0-4.9); Cholesterol 114 mg/dL (< 200); Globulin 2.5 g/dL (2.4-3.5); Glucose 133 mg/dL (70-105); HDL Cholesterol 35 mg/dL (40-59); LDL Cholesterol,Calculated 41 mg/dL (0-99); Osmolality,Calculated 296 (280-300); Sodium 141 mEq/L (136-145); Total Protein 6.6 g/dL (6.4-8.9); Triglycerides 188 mg/dL (< 150); eGFR For African Americans > 60 (> 60); eGFR For Non-African Americans > 60 (> 60)
[2019-01-11] MEDS ORDERED: *HR* Enoxaparin 40 MG/0.4 ML SYRINGE SQ SCH (07:00)
[2019-01-11 07:16] LABS: Estimated Average Glucose 183 mg/dl
[2019-01-11] MEDS: Insulin LISPRO 300 UNITS/3 ML VIAL SQ SCH ×3 (08:58→17:43)
[2019-01-11] MEDS ORDERED: Aspirin 81 MG TAB.CHEW PO SCH (09:00)
[2019-01-11] MEDS ORDERED: predniSONE 20 MG TABLET PO SCH (10:26)
[2019-01-11] MEDS ORDERED: Famotidine 20 MG/2 ML VIAL IVP PRN (10:30)
[2019-01-11 11:54] VITALS: BP 169/80
[2019-01-11] MEDS ORDERED: Acyclovir 200 MG CAPSULE PO SCH (12:45)
[2019-01-11] MEDS ORDERED: valACYclovir 500 MG TABLET PO SCH (15:00)
[2019-01-11] MEDS ORDERED: Lisinopril 20 MG TABLET PO SCH (17:15)
[2019-01-12] MEDS ORDERED: Lisinopril 20 MG TABLET PO SCH (09:00)
== END 2019-01-11 18:03 | disposition home or self-care (01) ==
LOC: 3BNU 14:14 → EMEROOARM 14:14 → SUATTDRO 15:53 → 3BNU 16:16
PROVIDERS: ADMIT Internal Medicine; ATTEND Nurse Practitioner Acute Care

== ENCOUNTER 2020-07-11 15:19 | Inpatient (IN) ==
[2020-07-11] MEDS ORDERED: 0.9 % Sodium Chloride 1,000 ML IVC ONE (15:57)
[2020-07-11] MEDS ORDERED: Pantoprazole 40 MG VIAL IVP ONE (15:57)
[2020-07-11] MEDS ORDERED: Isovue-370 500 ML BOTTLE IVP ONE (15:59)
[2020-07-11] MEDS ORDERED: Water for inj. (sterile) 10 ML ONE (16:20)
[2020-07-11 17:23] LABS: Hematocrit 46.8 % (37.5-50.1); Hemoglobin 15.9 g/dL (12.9-16.9); Mean Corpuscular Hemoglobin 30.8 pg (28.0-33.3); Mean Corpuscular Volume 90.5 fL (83.0-100.0); Mean Platelet Volume 9.4 fL (9.4-12.4); Platelet Count 316 K/mcL (140-400); Red Blood Count 5.17 M/mcL (4.19-5.50); Red Cell Distribution Width 12.3 % (11.5-14.5); White Blood Count 14.4 K/mcL (4.3-11.1)
[2020-07-11] MEDS ORDERED: cefTRIAXone 1,000 MG in Water for inj. (sterile) 10 ML IVP ONE (17:29)
[2020-07-11 17:32] LABS: INR 1.1; Prothrombin Time 12.8 Seconds (9.4-12.1)
[2020-07-11 17:34] LABS: Activated Partial Thrombo Time 24.4 Seconds (26.0-36.0)
[2020-07-11 17:43] LABS: BUN/Creatinine Ratio 24 (6-26); Blood Urea Nitrogen 19 mg/dL (8-23); Calcium 9.2 mg/dL (8.6-10.3); Carbon Dioxide 24 mEq/L (23-29); Chloride 94 mEq/L (98-107); Ethanol < 10 mg/dL (Less than 10); Glucose 307 mg/dL (70-105); Lipase 26 Units/L (11-82); Magnesium 1.5 mg/dL (1.6-2.6); Osmolality,Calculated 280 (280-300); Potassium 3.7 mEq/L (3.5-5.1); Sodium 128 mEq/L (136-145); Troponin I 0.03 ng/mL (< 0.04); eGFR For African Americans > 60 (> 60); eGFR For Non-African Americans > 60 (> 60)
[2020-07-11 17:55] LABS: Neutrophils # 6.3 K/mcL (1.6-8.9); Platelet Estimate Normal (Normal); Reactive Lymphocytes Present (Not Present)
[2020-07-11] MEDS ORDERED: Piperacillin/Tazobactam 3.375 GM in 0.9 % Sodium Chloride Mini Bag 100 ML IVPB ONE (18:28)
[2020-07-11 19:05] LABS: Alanine Aminotransferase 15 Units/L (7-52); Albumin 3.8 g/dL (3.5-5.7); Albumin/Globulin Ratio 1.3 (1.1-2.2); Alkaline Phosphatase 76 Units/L (34-104); Aspartate Amino Transferase 15 Units/L (13-39); Bilirubin,Direct 0.1 mg/dL (0.0-0.2); Bilirubin,Indirect 0.5 mg/dL (0.0-1.0); Bilirubin,Total 0.6 mg/dL (0.3-1.0); Total Protein 6.8 g/dL (6.4-8.9)
[2020-07-11] MEDS ORDERED: 0.9 % Sodium Chloride 500 ML IVC ONE (19:20)
[2020-07-11 19:42] LABS: Bilirubin,Urine Negative (Negative); Blood,Urine Trace (Negative); Clarity,Urine Clear (Clear); Color,Urine Light-Yellow (Yellow); Glucose,Urine (UA) >=1000 mg/dL (Normal); Ketones,Urine 10 mg/dL (Negative); Leukocyte Esterase,Urine Negative (Negative); Mucus,Urine Few per lpf (None-Few); Nitrite,Urine Negative (Negative); Protein,Urine Trace mg/dL (Neg-Trace); RBC,Urine 0-3 per hpf (0-3); Specific Gravity,Urine > 1.030 (1.010-1.025); Urobilinogen,Urine Normal (Normal); WBC,Urine 0-3 per hpf (0-3)
[2020-07-11 19:55] LABS: Amphetamine Screen,Urine Negative ng/mL (Cutoff=1000); Barbiturate Screen,Urine Negative ng/mL (Cutoff=200); Benzodiazepines Screen,Urine Negative ng/mL (Cutoff=200); Cannabinoid Screen,Urine Negative ng/mL (Cutoff = 50); Cocaine Screen,Urine Negative ng/mL (Cutoff= 300); Opiate Screen,Urine Negative ng/mL (Cutoff=300); Phencyclidine Screen,Urine Negative ng/mL (Cutoff=25)
[2020-07-11] MEDS ORDERED: Ondansetron 4 MG/2 ML VIAL IVP PRN (21:55)
[2020-07-11] MEDS ORDERED: Naloxone 0.4 MG/ML INJ IVP PRN (21:55)
[2020-07-11] MEDS ORDERED: *HR* Dextrose 50 % in Water (Vial) 50 ML VIAL IVP PRN (21:59)
[2020-07-11] MEDS ORDERED: Dextrose Gel 15 GM/37.5 ML TUBE PO PRN ×2 (21:59)
[2020-07-11] MEDS ORDERED: D5% in Water 1,000 ML IVC PRN (21:59)
[2020-07-11] MEDS: 0.9 % Sodium Chloride 1,000 ML IVC SCH (23:14)
[2020-07-11] MEDS: Melatonin 3 MG TABLET PO PRN (23:31)
[2020-07-12] MEDS: Insulin LISPRO 300 UNITS/3 ML VIAL SUBQ SCH ×4 (01:11→21:20)
[2020-07-12 02:24] LABS: Hematocrit 44.7 % (37.5-50.1); Hemoglobin 15.1 g/dL (12.9-16.9); Mean Corpuscular HGB Conc 33.8 g/dL (31.6-35.5); Mean Corpuscular Hemoglobin 30.9 pg (28.0-33.3); Mean Corpuscular Volume 91.6 fL (83.0-100.0); Mean Platelet Volume 9.3 fL (9.4-12.4); Platelet Count 291 K/mcL (140-400); Red Blood Count 4.88 M/mcL (4.19-5.50); Red Cell Distribution Width 12.5 % (11.5-14.5); White Blood Count 12.6 K/mcL (4.3-11.1)
[2020-07-12 02:34] LABS: INR 1.2; Prothrombin Time 13.3 Seconds (9.4-12.1)
[2020-07-12 02:48] LABS: BUN/Creatinine Ratio 18 (6-26); Blood Urea Nitrogen 13 mg/dL (8-23); Calcium 8.3 mg/dL (8.6-10.3); Carbon Dioxide 25 mEq/L (23-29); Chloride 98 mEq/L (98-107); Chol/HDL Ratio 2.3 (0-4.9); Cholesterol 72 mg/dL (< 200); Glucose 235 mg/dL (70-105); HDL Cholesterol 32 mg/dL (40-59); LDL Cholesterol,Calculated 20 mg/dL (< 100); Osmolality,Calculated 280 (280-300); Potassium 3.1 mEq/L (3.5-5.1); Sodium 131 mEq/L (136-145); Triglycerides 100 mg/dL (< 150); eGFR For African Americans > 60 (> 60); eGFR For Non-African Americans > 60 (> 60)
[2020-07-12 03:01] LABS: Eosinophils # 0.3 K/mcL (0.0-0.6); Lymphocytes # 1.8 K/mcL (0.6-4.6); Monocytes # 1.8 K/mcL (0.0-1.3); Neutrophils # 8.1 K/mcL (1.6-8.9); Platelet Estimate Normal (Normal); Reactive Lymphocytes Present (Not Present)
[2020-07-12 03:02] LABS: Toxic Granulation Present (Not Present)
[2020-07-12] MEDS: Vancomycin Oral Soln 125 MG/2.5 ML UDC PO SCH ×5 (03:46→21:20)
[2020-07-12] MEDS: 0.9 % Sodium Chloride 1,000 ML IVC SCH (08:26)
[2020-07-12] MEDS: Aspirin Enteric Coated 81 MG Tablet PO SCH (08:48)
[2020-07-12] MEDS: Calcium Gluconate 1gm/50mL 1 GM/50 ML BAG IVPB SCH ×2 (09:06→13:48)
[2020-07-12 13:35] LABS: Adenovirus F 40/41 PCR Not detected (Not detect); Astrovirus PCR Not detected (Not detect); Campylobacter by PCR Not detected (Not detect); Cryptosporidium by PCR Not detected (Not detect); Cyclospora cayetanensis PCR Not detected (Not detect); E. coli O157 by PCR Not detected (Not detect); Entamoeba histolytica PCR Not detected (Not detect); Enteroaggregative E.coli(EAEC) Not detected (Not detect); Enteropathogenic E.coli(EPEC) Not detected (Not detect); Enterotoxigenic E.coli (ETEC) Not detected (Not detect); Giardia lamblia PCR Not detected (Not detect); Norovirus GI/GII PCR Not detected (Not detect); Plesiomonas shigelloides PCR Not detected (Not detect); Rotavirus A PCR Not detected (Not detect); Salmonella PCR Not detected (Not detect); Sapovirus PCR Not detected (Not detect); Shig/EnteroinvasiveE coli EIEC Not detected (Not detect); Shigalike tox-prod E coli STEC Not detected (Not detect); Vibrio PCR Not detected (Not detect); Vibrio cholerae PCR Not detected (Not detect); Yersinia enterocolitica PCR Not detected (Not detect)
[2020-07-12 13:38] LABS: C.difficile Toxin A/B Gene PCR DETECTED (Not detect)
[2020-07-12] MEDS ORDERED: Nitroglycerin 0.4 MG TAB.SUBL SL PRN (15:48)
[2020-07-12] MEDS ORDERED: *HR* LORazepam 2 MG/ML VIAL IVP PRN ×3 (18:54)
[2020-07-12] MEDS: Melatonin 3 MG TABLET PO PRN (21:19)
[2020-07-12] MEDS: Gabapentin 300 MG CAPSULE PO SCH (21:19)
[2020-07-13 02:29] LABS: Hematocrit 45.1 % (37.5-50.1); Hemoglobin 15.4 g/dL (12.9-16.9); Lymphocytes # 2.6 K/mcL (0.6-4.6); Mean Corpuscular HGB Conc 34.1 g/dL (31.6-35.5); Mean Corpuscular Hemoglobin 31.3 pg (28.0-33.3); Mean Corpuscular Volume 91.7 fL (83.0-100.0); Mean Platelet Volume 9.7 fL (9.4-12.4); Platelet Count 338 K/mcL (140-400); Red Blood Count 4.92 M/mcL (4.19-5.50); Red Cell Distribution Width 12.6 % (11.5-14.5); White Blood Count 14.5 K/mcL (4.3-11.1)
[2020-07-13 02:57] LABS: Alanine Aminotransferase 14 Units/L (7-52); Albumin 3.6 g/dL (3.5-5.7); Albumin/Globulin Ratio 1.2 (1.1-2.2); Alkaline Phosphatase 73 Units/L (34-104); Aspartate Amino Transferase 13 Units/L (13-39); BUN/Creatinine Ratio 14 (6-26); Bilirubin,Total 0.4 mg/dL (0.3-1.0); Blood Urea Nitrogen 10 mg/dL (8-23); Calcium 8.8 mg/dL (8.6-10.3); Carbon Dioxide 26 mEq/L (23-29); Chloride 100 mEq/L (98-107); Globulin 2.9 g/dL (2.4-3.5); Glucose 162 mg/dL (70-105); Magnesium 1.8 mg/dL (1.6-2.6); Osmolality,Calculated 285 (280-300); Phosphorous 2.8 mg/dL (2.7-4.5); Potassium 3.2 mEq/L (3.5-5.1); Sodium 136 mEq/L (136-145); Total Protein 6.5 g/dL (6.4-8.9); eGFR For African Americans > 60 (> 60); eGFR For Non-African Americans > 60 (> 60)
[2020-07-13 03:13] LABS: Eosinophils # 1.5 K/mcL (0.0-0.6); Monocytes # 1.2 K/mcL (0.0-1.3); Neutrophils # 9.3 K/mcL (1.6-8.9); Platelet Estimate Normal (Normal); Reactive Lymphocytes Present (Not Present); Toxic Granulation Present (Not Present)
[2020-07-13 03:20] LABS: Folate > 22.3 ng/mL (3.0-16.0); Vitamin B12 > 1500 pg/mL (250-1100)
[2020-07-13 04:35] LABS: Estimated Average Glucose 249 mg/dl; Hemoglobin A1C 10.3 %
[2020-07-13] MEDS: lisinopriL 20 MG TABLET PO SCH (09:32)
[2020-07-13] MEDS: Thiamine (B-1) 100 MG TABLET PO SCH (09:32)
[2020-07-13] MEDS: Vancomycin Oral Soln 125 MG/2.5 ML UDC PO SCH ×4 (09:32→20:40)
[2020-07-13] MEDS: Aspirin Enteric Coated 81 MG Tablet PO SCH (09:33)
[2020-07-13] MEDS: Folic Acid 1 MG TABLET PO SCH (09:33)
[2020-07-13] MEDS: Multivit/Ca/Min/Fe/FA 1 TAB TABLET PO SCH (09:33)
[2020-07-13] MEDS: Gabapentin 300 MG CAPSULE PO SCH ×3 (09:34→20:33)
[2020-07-13] MEDS: Insulin LISPRO 300 UNITS/3 ML VIAL SUBQ SCH ×4 (09:35→20:33)
[2020-07-13] MEDS: Lactobacillus 1 EACH CAP.SPRINK PO SCH (20:33)
[2020-07-13] MEDS ORDERED: Insulin DETEMIR 100 UNIT/ML X5UNITS SUBQ SCH (21:00)
[2020-07-14 02:12] LABS: Hematocrit 41.9 % (37.5-50.1); Hemoglobin 14.4 g/dL (12.9-16.9); Mean Corpuscular HGB Conc 34.4 g/dL (31.6-35.5); Mean Corpuscular Hemoglobin 31.4 pg (28.0-33.3); Mean Corpuscular Volume 91.5 fL (83.0-100.0); Mean Platelet Volume 9.6 fL (9.4-12.4); Nucleated Red Blood Cells 0.1 /100 WBC (0); Platelet Count 330 K/mcL (140-400); Red Blood Count 4.58 M/mcL (4.19-5.50); Red Cell Distribution Width 12.3 % (11.5-14.5); White Blood Count 13.5 K/mcL (4.3-11.1)
[2020-07-14 02:35] LABS: Alanine Aminotransferase 15 Units/L (7-52); Albumin 3.2 g/dL (3.5-5.7); Albumin/Globulin Ratio 1.2 (1.1-2.2); Alkaline Phosphatase 78 Units/L (34-104); Aspartate Amino Transferase 14 Units/L (13-39); BUN/Creatinine Ratio 20 (6-26); Bilirubin,Total 0.3 mg/dL (0.3-1.0); Blood Urea Nitrogen 15 mg/dL (8-23); Calcium 8.1 mg/dL (8.6-10.3); Carbon Dioxide 25 mEq/L (23-29); Chloride 101 mEq/L (98-107); Globulin 2.6 g/dL (2.4-3.5); Glucose 204 mg/dL (70-105); Magnesium 1.7 mg/dL (1.6-2.6); Osmolality,Calculated 285 (280-300); Phosphorous 2.9 mg/dL (2.7-4.5); Sodium 134 mEq/L (136-145); Total Protein 5.8 g/dL (6.4-8.9); eGFR For African Americans > 60 (> 60); eGFR For Non-African Americans > 60 (> 60)
[2020-07-14 03:05] LABS: Lymphocytes # 3.5 K/mcL (0.6-4.6); Monocytes # 1.1 K/mcL (0.0-1.3); Neutrophils # 8.9 K/mcL (1.6-8.9); Platelet Estimate Normal (Normal); Reactive Lymphocytes Present (Not Present); Toxic Granulation Present (Not Present)
[2020-07-14 06:29] VITALS: BP 178/88
[2020-07-14] MEDS: Insulin LISPRO 300 UNITS/3 ML VIAL SUBQ SCH ×2 (08:00→12:24)
[2020-07-14] MEDS: lisinopriL 20 MG TABLET PO SCH (08:04)
[2020-07-14] MEDS: Lactobacillus 1 EACH CAP.SPRINK PO SCH (08:04)
[2020-07-14] MEDS: Thiamine (B-1) 100 MG TABLET PO SCH (08:04)
[2020-07-14] MEDS: Multivit/Ca/Min/Fe/FA 1 TAB TABLET PO SCH (08:04)
[2020-07-14] MEDS: Vancomycin Oral Soln 125 MG/2.5 ML UDC PO SCH ×2 (08:04→12:29)
[2020-07-14] MEDS: Folic Acid 1 MG TABLET PO SCH (08:04)
[2020-07-14] MEDS: Aspirin Enteric Coated 81 MG Tablet PO SCH (08:04)
[2020-07-14] MEDS: Calcium Gluconate 1gm/50mL 1 GM/50 ML BAG IVPB SCH ×2 (08:06→11:25)
[2020-07-14] MEDS: Gabapentin 300 MG CAPSULE PO SCH (08:06)
== END 2020-07-14 13:03 | disposition home or self-care (01) | DRG 872 ==
LOC: 3ANU 15:19 → EMEROOARM 15:19 → SUATTDRO 20:59 → 3ANU 21:28
PROVIDERS: ADMIT Internal Medicine; ATTEND Internal Medicine